=== PATIENT | female | born 1990 | race Caucasian/White ===

== ENCOUNTER 2019-11-16 12:10 | Observation (INO) | payer BC, SELFPAY ==
[2019-11-16 12:22] VITALS: BP 96/60; PULSE 91
[2019-11-16 12:23] VITALS: TEMP 36.9
[2019-11-16 12:30] VITALS: BP 98/42; PULSE 96
[2019-11-16 12:45] VITALS: BP 94/64; PULSE 91
--- NOTE | 2019-11-16 12:48 | OBADM ---
This patient, Gabriela Stock, admitted to the OB room [facility] for observation. Patient/family oriented to hospital policies and general routines including ID bracelet, bed and alarms, visiting hours, pain management, procedures, bathroom and other care routines, personal items, smoking policy, room service/diet, and visiting hours. Patient/Family are encouraged to report perceived risks to care and to ask questions if they do not understand what they are told or what they should do.
[2019-11-16 13:00] VITALS: BP 98/64; PULSE 89
[2019-11-16 13:20] LABS: Basophils Absolute Auto 0.1 K/mm3 (0.0-0.1); Basophils Percent Auto 0.4 % (0.2-1.2); Eosinophils Absolute Auto 0.1 K/mm3 (0-0.3); Eosinophils Percent Auto 0.6 % (0-4.4); Hemoglobin 10.2 g/dL (12.0-15.0); Immature Granulocyte Absolute 0.08 K/mm3 (0.00-0.031); Immature Granulocyte Percent A 0.5 % (0-0.5); Lymphocytes Absolute Auto 1.06 K/mm3 (0.9-3.2); Lymphocytes Percent Auto 6.8 % (18.3-44.2); Mean Corpuscular Hemoglobin 23.3 pg (26-34); Mean Corpuscular Volume 77.8 fl (80-100); Mean Platelet Volume 10.6 fl (7.4-10.4); Monocytes Absolute Auto 0.5 K/mm3 (0.1-0.6); Monocytes Percent Auto 3.4 % (2.6-8.5); Neutrophils Absolute Auto 13.7 K/mm3 (1.3-6.7); Neutrophils Percent Auto 88.3 % (45.5-73.1); Platelet Count Result 296 k/mm3 (150-375); Red Blood Count 4.37 M/mm3 (4.2-5.4); Red Cell Distribution Width 14.1 % (11.5-14.5); White Blood Count 15.5 K/mm3 (4.5-10.0)
[2019-11-16] MEDS: ONDANSETRON INJ 4 MG/2 ML VIAL IV PUSH (13:23)
[2019-11-16 13:24] LABS: Add Urine Microscopic? YES; Appearance Urine Cloudy (Clear); Bacteria Urine Trace /hpf; Bilirubin Urine Negative (Negative); Blood Urine Negative (Negative); Color Urine Yellow (Yellow); Glucose Urine UA Negative (Negative); Ketones Urine Negative (Negative); Leukocyte Esterase Ur 2+ LEU/UL (NEGATIVE); Mucus Urine Rare /lpf; Nitrate Urine Negative (Negative); Protein Urine Negative (Negative); RBC Urine 0-2 /hpf (0-2); Specific Grav Ur 1.016 (1.001-1.035); Squamous Epithelial Cell Urine Many /hpf (Few); Transitional Epi Cells Urine Rare /hpf (None Seen); Urobilinogen Urine Negative mg/dL (<2.0)
[2019-11-16] MEDS: LACTATED RINGERS 1,000 ML 999 ML IV CONT (13:24)
[2019-11-16 13:41] VITALS: BMI 23.1
[2019-11-16 13:43] LABS: Alanine Aminotransferase 10 U/L (4-35); Albumin Level 4.3 g/dL (3.5-5.1); Alkaline Phosphatase 138 U/L (38-126); Aspartate Amino Transferase 17 U/L (14-36); Bilirubin,Total 0.2 mg/dL (0.2-1.3); Blood Urea Nitrogen 8 mg/dL (7-17); Carbon Dioxide 20 mmol/L (22-30); Chloride 104 mmol/L (98-107); Estimated Glomerular Filt Rate > 60; Glucose 82 mg/dL (65-105); Potassium 3.8 mmol/L (3.4-5.0); Sodium 136 mmol/L (137-145); Uric Acid 2.7 mg/dL (2.5-7.5)
[2019-11-16 13:50] LABS: Amphetamine Screen Urine Negative (Negative); Barbiturate Screen Urine Negative (Negative); Benzodiazepines Screen Urine Negative (Negative); Cannabinoid Screen Urine Negative (Negative); Cocaine Screen Urine Negative (Negative); Methadone Screen Urine Negative (Negative); Opiate Screen Urine Negative (Negative); Phencyclidine Screen Urine Negative (Negative)
--- NOTE | 2019-11-16 14:32 | PC.NURSE ---
1417-Pt taken off of monitor to discharge home, no contractions noted.
--- NOTE | 2019-12-08 11:45 | PM.OBTRLD ---
OB - Triage/Final Diagnosis Evaluation Laboratory results: Laboratory Tests 11/16/19 11/16/19 11/16/19 12:59 12:59 12:59 WBC 15.5 H RBC 4.37 Hgb 10.2 L Hct 34.0 L MCV 77.8 L MCH 23.3 L MCHC 30.0 L RDW 14.1 Plt Count 296 MPV 10.6 H Immature Gran % (Auto) 0.5 Neut % (Auto) 88.3 H Lymph % (Auto) 6.8 L [place] % (Auto) 3.4 Eos % (Auto) 0.6 Baso % (Auto) 0.4 Lymph # (Auto) 1.06 [place] # (Auto) 0.5 Eos # (Auto) 0.1 Baso # (Auto) 0.1 Abs Immat Gran (auto) 0.08 H Absolute Neuts (auto) 13.7 H Absolute Nucleated RBC 0.0 Nucleated RBC % 0.0 Sodium 136 L Potassium 3.8 Chloride 104 Carbon Dioxide 20 L BUN 8 Creatinine 0.40 L Estim Creat Clear Calc Not Reportable Estimated GFR > 60 Glucose 82 Uric Acid 2.7 Calcium 9.0 Total Bilirubin 0.2 AST 17 ALT 10 Alkaline Phosphatase 138 H Total Protein 8.0 Albumin 4.3 Urine Color Urine Appearance Urine pH Ur Specific Hallie Urine Protein Urine Glucose (UA) Urine Ketones Ur Blood (Man) Urine Nitrate Urine Bilirubin Urine Urobilinogen Ur Leukocyte Esterase Urine RBC Urine WBC Ur Squamous Epith Cells Ur Transition Epith Cell Urine Bacteria Urine Mucus Urine Opiates Screen Negative Urine Methadone Screen Negative Ur Barbiturates Screen Negative Ur Phencyclidine Scrn Negative Ur Amphetamine Screen Negative U Benzodiazepines Scrn Negative Urine Cocaine Screen Negative U Cannabinoids Screen Negative 11/16/19 13:02 WBC RBC Hgb Hct MCV MCH MCHC RDW Plt Count MPV Immature Gran % (Auto) Neut % (Auto) Lymph % (Auto) [place] % (Auto) Eos % (Auto) Baso % (Auto) Lymph # (Auto) [place] # (Auto) Eos # (Auto) Baso # (Auto) Abs Immat Gran (auto) Absolute Neuts (auto) Absolute Nucleated RBC Nucleated RBC % Sodium Potassium Chloride Carbon Dioxide BUN Creatinine Estim Creat Clear Calc Estimated GFR Glucose Uric Acid Calcium Total Bilirubin AST ALT Alkaline Phosphatase Total Protein Albumin Urine Color Yellow Urine Appearance Cloudy H Urine pH 6.0 Ur Specific Hallie 1.016 Urine Protein Negative Urine Glucose (UA) Negative Urine Ketones Negative Ur Blood (Man) Negative Urine Nitrate Negative Urine Bilirubin Negative Urine Urobilinogen Negative Ur Leukocyte Esterase 2+ H Urine RBC 0-2 Urine WBC 4-6 H Ur Squamous Epith Cells Many H Ur Transition Epith Cell Rare Urine Bacteria Trace Urine Mucus Rare Urine Opiates Screen Urine Methadone Screen Ur Barbiturates Screen Ur Phencyclidine Scrn Ur Amphetamine Screen U Benzodiazepines Scrn Urine Cocaine Screen U Cannabinoids Screen Final Diagnosis (1) False labor: Code(s): O47.9 - False labor, unspecified Status: Acute
== END 2019-11-16 14:31 | disposition home or self-care (01) ==
PROVIDERS: Admitting Provider Obstetrics & Gynecology; Visit Provider Obstetrics & Gynecology
DX: O47.02 False labor before 37 completed weeks of gestation, second trimester (principal); Z3A.22 22 weeks gestation of pregnancy
CPT/HCPCS: 36415; 80053; 80307; 81001; 84550; 85025; 87086; 87088; 96374; A9270; G0378; G0379; J2405; J7120

== ENCOUNTER 2019-12-15 22:48 | Observation (INO) | payer BC, MEDICAID, SELFPAY ==
--- NOTE | ~2019-12-15 | XR_ITS ---
EXAMINATION: XR chest 2V DATE: 12/16/2019 00:36 INDICATION: Shortness of breath. TECHNIQUE: Frontal and lateral views of the chest were obtained. COMPARISON: Chest 2 views 07/21/2018 FINDINGS: The chest demonstrates clear lungs without pneumonia, pleural effusion, or pneumothorax. Th e heart size is normal. Surgical clips in the right upper quadrant are likely from cholecystectomy. IMPRESSION: 1. No acute cardiopulmonary disease. Reviewed, dictated and finalized at location A. RHANGER CONTRACTOR
--- NOTE | ~2019-12-15 | US_ITS ---
EXAMINATION: US OB follow up DATE: 12/17/2019 13:57 INDICATION: Second trimester growth and amniotic fluid assessment, influenza TECHNIQUE: Real-time ultrasound of the pelvis was performed. The interpreting radiologist was not pre sent for the study. COMPARISON: None. FINDINGS: There is a single living fetus in vertex presentation. The placenta is posterior. Hypoatten uating areas of the placenta likely reflect venous lakes. cardiac activity and movement a re noted. heart rate is 141 beats per minute (bpm). The amniotic fluid index is 11.5 cm which i s normal. The following biometric data were obtained: Biparietal diameter (BPD): 7.1 cm; head circumference (HC): 26.3 cm; abdominal circumference (AC): 24 .4 cm; femur length (FL): 5.2 cm. These measurements are concordant. Estimated weight is 1234 g +/- 185 g, which correlates with the 87th percentile when 03/16/2020 is used as estimated date of delivery. As single measurements, these parameters are each equal to the following estimated gestational ages w ith ranges of +/- 2 standard deviations: BPD: 28 weeks 5 days +/- 2 weeks 1 days. HC: 28 weeks 5 days +/- 2 weeks 0 days. AC: 28 weeks 5 days +/- 2 weeks 1 days. FL: 28 weeks 1 days +/- 2 weeks 1 days. estimated gestational age based solely on measurements from this exam is 28 weeks 4 days +/- 2 weeks 0 days. IMPRESSION: 1. Single living fetus in vertex presentation. 2. Normal amniotic fluid index. 3. Estimated weight is 1234 g +/- 185 g, which correlates with the 87th percentile when 03/16/20 20 is used as estimated date of delivery. Reviewed, dictated and finalized at location A. R BROKER IMPRESSION: 1. Single living fetus in vertex presentation. 2. Normal amniotic fluid index. 3. Estimated weight is 1234 g +/- 185 g, which correlates with the 87th p ercentile when 03/16/2020 is used as estimated date of delivery.
[2019-12-15 22:54] VITALS: BP 104/63; PULSE 108; RESP 22; TEMP 37.1; O2SAT 97
[2019-12-15 22:58] VITALS: BP 115/70; PULSE 96; RESP 20; O2SAT 100
--- NOTE | 2019-12-15 23:05 | ED.URI ---
HPI - URI/Sore Throat General Chief Complaint: Upper Respiratory Infection Stated Complaint: sob, back pain 27 wks preg. Time Seen by Provider: 12/15/19 22:56 Source: patient and RN notes reviewed Mode of arrival: ambulatory Limitations: no limitations History of Present Illness HPI Narrative: Pt is a 29 y/o female who is currently 28 weeks , who presents to the ED with c/o SOB. She notes that she has been following with [employer] WELDING MACHINE OPERATOR, Dr. Vergara, for her current . Pt states that this has been much more difficult than previous pregnancies. She reports intermittent SOB starting roughly 2 weeks ago and worsening within the past 2 days. Pt also notes having worsening low back pain starting several days ago. She reports recent rhinorrhea, but denies any fever, CP, dysuria, hematuria, or vaginal bleeding. Pt states that her family has recently had an upper respiratory illness at home. She notes that she recently quit smoking roughly 1.5 weeks ago. MD elicited complaint: other (SOB) Pertinent past history: asthma Onset (ago): week(s) (2) Consistency: progressively worsening Context: sick contacts Associated symptoms: rhinorrhea and other (low back pain) Related Data Home Medications Medication Instructions Recorded Confirmed No Home Medications 11/16/19 11/16/19 Allergies Allergy/AdvReac Type Severity Reaction Status Date / Time No Known Allergies Allergy Unverified 07/21/18 17:21 Review of Systems Review of Systems: Narrative: CONSTITUTIONAL: Denies fever, chills, or sweats. ENT: Denies sore throat or otalgia. Reports rhinorrhea. CARDIOVASCULAR: Denies chest pain, palpitations, or edema. RESPIRATORY: Denies cough. Reports dyspnea. GASTROINTESTINAL: Denies abdominal pain, nausea, vomiting, or diarrhea. GENITOURINARY: Denies dysuria, hematuria, or vaginal bleeding. MUSCULOSKELETAL: Reports low back pain. Denies joint pain or myalgia. All systems reviewed & are unremarkable except as noted in HPI and below PMFSH Past Medical History Medical History Anemia Asthma GERD (gastroesophageal reflux disease) Upper respiratory infection Surgical History Surgical History History of cholecystectomy Hx of tonsillectomy Social History Social History (Reviewed 02/26/20 @ 23:31 by Paul Chanel Smoking status: Smoker, status unknown Gender identity (if verbalized by the patient): Female Exam Narrative: Exam Narrative: GENERAL: Thin, frail appearing, in mild respiratory distress. HEAD: Normocephalic, atraumatic. EYES: PERRLA and EOMI. ENT: Nares clear, no rhinorrhea or epistaxis. Mucous membranes dry NECK: Supple. CHEST: Mild expiratory wheezing. Mild respiratory distress. Tachypneic. HEART: Regular rate and rhythm. No murmur heard. Normal peripheral pulses. ABDOMEN: Fundus palpable below the xiphoid process. Soft, nontender, nondistended, normal active bowel sounds. No flank tenderness. EXTREMITIES: Normal range of motion. No edema. SKIN: Warm, dry, no rash. NEURO: No focal deficits. Alert and oriented. EOMs intact without nystagmus. No facial droop/asymmetry noted bilaterally. Grimace intact. Intact sensation in face. Hearing intact bilaterally. Shoulder shrug intact. Strength 5/5 bilateral upper extremities. Strength 5/5 bilateral lower extremities. Ambulatory, does require some assistance with ambulation due to dizziness and lightheadedness. Course Course Emergency Course: Patient presenting for evaluation of cough, shortness of breath. At the time of initial assessment, ABCs are intact, patient is in moderate respiratory distress, tachypnea, use of accessory muscles to breathe. She is tachycardic. Patient is hypotensive. Given concern for sepsis, patient was given a 30 mL/kg fluid bolus. She was given antibiotics. Chest x-ray is concerning for possible right perihilar congestion, opacity that may be consist
--- NOTE | 2019-12-15 23:12 | ECG_ITS ---
Measurements Intervals Ola Rate: 98 P: 47 MA: 125 QRS: 66 QRSD: 89 T: 31 QT: 337 QTc: 432 Interpretive Statements SINUS RHYTHM BASELINE ARTIFACT- I, II, III, AVR, AVL, AVF NORMAL ECG Electronically Signed On 12-16-2019 9:00:22 PORT TRAFFIC MANAGER by Jah Mooney D.O.
--- NOTE | 2019-12-15 23:35 | PC.NURSE ---
heartones 138.
[2019-12-15] MEDS: ALBUTEROL SULFATE NEB 2.5 MG/0.5 ML INH 10 MG INHALATION (23:36)
[2019-12-15 23:43] VITALS: PULSE 103; RESP 20
[2019-12-15 23:44] LABS: Basophils Percent Auto 0.3 % (0.2-1.2); Eosinophils Absolute Auto 0.1 K/mm3 (0-0.3); Eosinophils Percent Auto 0.7 % (0-4.4); Hematocrit 26.4 % (37.0-47.0); Hemoglobin 7.8 g/dL (12.0-15.0); Immature Granulocyte Absolute 0.08 K/mm3 (0.00-0.031); Immature Granulocyte Percent A 0.8 % (0-0.5); Lymphocytes Absolute Auto 1.47 K/mm3 (0.9-3.2); Lymphocytes Percent Auto 14.9 % (18.3-44.2); Mean Corpuscular HGB Conc 29.5 g/dl (32-36); Mean Corpuscular Hemoglobin 21.8 pg (26-34); Mean Corpuscular Volume 73.7 fl (80-100); Mean Platelet Volume 11.1 fl (7.4-10.4); Monocytes Absolute Auto 0.6 K/mm3 (0.1-0.6); Neutrophils Absolute Auto 7.6 K/mm3 (1.3-6.7); Neutrophils Percent Auto 77.3 % (45.5-73.1); Nucleated Red Blood Cells Perc 0.4 % (0.0-0.2); Platelet Count Result 266 k/mm3 (150-375); Red Blood Count 3.58 M/mm3 (4.2-5.4); Red Cell Distribution Width 14.7 % (11.5-14.5); White Blood Count 9.9 K/mm3 (4.5-10.0)
[2019-12-15 23:50] LABS: Add Urine Microscopic? YES; Appearance Urine Clear (Clear); Bacteria Urine Trace /hpf; Bilirubin Urine Negative (Negative); Blood Urine Negative (Negative); Color Urine Straw (Yellow); Glucose Urine UA Negative (Negative); Ketones Urine Negative (Negative); Leukocyte Esterase Ur 2+ LEU/UL (Negative); Nitrate Urine Negative (Negative); Protein Urine Negative (Negative); RBC Urine 0-2 /hpf (0-2); Specific Grav Ur 1.008 (1.001-1.035); Squamous Epithelial Cell Urine Few /hpf (Few); Urobilinogen Urine Negative mg/dL (<2.0)
[2019-12-15] MEDS: methylPREDNISolone SOD SUCC 125 MG VIAL IV PUSH (23:50)
--- NOTE | 2019-12-15 23:52 | PC.NURSE ---
Patient stated she is 27 weeks and receiving care. PRABHJOT February 2020. Patient is a para 3 4. Patient denies any ABD pain or vaginal discharge.
[2019-12-15 23:56] LABS: Blood Urea Nitrogen 7 mg/dL (7-17); Calcium 8.8 mg/dL (8.4-10.2); Carbon Dioxide 21 mmol/L (22-30); Chloride 101 mmol/L (98-107); Estimated CRCL calculation 154 ml/min; Estimated Glomerular Filt Rate > 60; Glucose 90 mg/dL (65-105); Potassium 3.4 mmol/L (3.4-5.0); Sodium 136 mmol/L (137-145)
[2019-12-16] VITALS (24 sets, daily range): BP systolic 92–113; BP diastolic 51–70; PULSE 53–128; RESP 16–25; TEMP 36.4–37.7; O2SAT 95–100; BMI 25.0
[2019-12-16 00:08] LABS: NT Pro B Type Natriuretic Pept 47 PG/ML (5-100); Troponin I < 0.012 ng/mL (0.000-0.034)
[2019-12-16 00:15] LABS: Hypochromasia 1+ (NORMAL); Large Platelets Present; Platelet Estimate Adequate (Adequate)
[2019-12-16] MEDS: ALBUTEROL SULFATE NEB 2.5 MG/0.5 ML INH 5 MG INHALATION (00:55)
[2019-12-16 01:12] LABS: Alveolar/Arterial O2 Gradient 20.8 mmHg; Base Excess ABG -5.8 mEq/l (+/-2.0); Carboxyhemoglobin 0.3 % THb (0-2.0); Fractional Inspired Oxygen 21 %; HCO3 ABG 16.6 mEq/l (22.0-26.0); Methemoglobin ABG 0.2 %THb (0-1.5); Oxygen Content ABG 11.3 %vol (16.0-22.0); Oxygen Saturation ABG 98.1 % (95.0-100.0); Oxyhemoglobin 96.3 % THb (90.0-100.0); PO2 ABG 101.6 mmHg (80.0-100.0); PO2 FiO2 Ratio Arterial Blood 4.84 %; Reduced Hemoglobin 3.2 %THb (0-5.0); Total Hemoglobin 8.2 g/dL (12.0-18.0); pH ABG 7.481 (7.350-7.450)
[2019-12-16 01:14] LABS: PCO2 ABG 22.8 mmHg (35.0-45.0)
[2019-12-16 01:15] LABS: Device ROOM AIR; Site Drawn LEFT BRACHIAL
[2019-12-16] MEDS: SODIUM CHLORIDE 0.9% IV 1,000 ML 999 ML IV CONT (01:15)
[2019-12-16 01:59] LABS: Lactic Acid Reflex 1.4 mmol/L (0.7-2.1)
[2019-12-16] MEDS: SODIUM CHLORIDE 0.9% IV 1,000 ML 999 ML (02:11)
[2019-12-16] MEDS: OSELTAMIVIR PHOSPHATE 75 MG CAP PO (02:12)
[2019-12-16 02:24] LABS: Hematocrit 22.7 % (37.0-47.0)
[2019-12-16 02:27] LABS: Hemoglobin 6.9 g/dL (12.0-15.0)
--- NOTE | 2019-12-16 02:35 | PC.NURSE ---
Patient report faxed to the floor.
[2019-12-16] MEDS: SODIUM CHLORIDE 0.9% IV 250 ML 30 ML IV CONT (04:01)
[2019-12-16 08:21] LABS: Hematocrit 26.6 % (37.0-47.0)
[2019-12-16] MEDS: predniSONE 20 MG TABLET 60 MG PO (09:07)
[2019-12-16] MEDS: LEVALBUTEROL NEB 1.25 MG/3 ML 0.63 MG INHALATION ×3 (09:40→20:14)
--- NOTE | 2019-12-16 13:59 | PM.IMCN ---
Assessment and Plan Assessment and plan (1) Influenza A: Code(s): J10.1 - Influenza due to other identified influenza virus with other respiratory manifestations Status: Acute Assessment and Plan: Patient tested positive for influenza A in the ER but symptoms present for 2 weeks. Isolation discontinued. Will also discontinue Tamiflu as greater than 48 hours from onset of symptoms. Patient is on room air. No further wheezing. May discharge home from hospitalist standpoint. Will sign off but may re-consult if needed. Thank you for allowing us to participate in the care this patient. (2) Asthma: Qualifiers: Asthma severity: unspecified severity Asthma persistence: unspecified Asthma complication type: unspecified Qualified Code(s): J45.909 - Unspecified asthma, uncomplicated Code(s): J45.909 - Unspecified asthma, uncomplicated Status: Acute Assessment and Plan: Chest x-ray personally reviewed and no active disease seen. Radiology also officially reads chest x-ray as no active disease. Clinically does not have pneumonia with WBC normal and lungs now clear. Will discontinue prednisone as not felt necessary at this time. Would recommend having albuterol inhaler available for patient. Antibiotics started per recommendation of OB and may be continued per his discretion. (3) Anemia: Qualifiers: Anemia type: iron deficiency Iron deficiency anemia type: unspecified iron deficiency Qualified Code(s): D50.9 - Iron deficiency anemia, unspecified Code(s): D64.9 - Anemia, unspecified Status: Acute Assessment and Plan: Known anemia. Does not take iron. Hemoglobin did drop to 6.9 overnight with transfusion ordered per OB. Last 2 hemoglobin levels 8.0 with most recent 8.2. Would recommend following as an outpatient. (4) DVT prophylaxis: Code(s): Z29.9 - Encounter for prophylactic measures, unspecified Status: Acute Assessment and Plan: Per OB service. HPI Data of Consult Consult date: 12/16/19 Requesting Physician: Rashid Vergara MD Primary Care Provider: UNKNOWN,DOCTOR Consult Narrative Narrative: Date and Time of Service of Consult: 05/08/2020 at 1:30 p.m.. Reason for Consult: Assistance with management of respiratory issues. History of Present Illness: Gabriela Stock is a 29 year old female currently 27 weeks today with known asthma, anemia and depression who presented to the emergency room yesterday with increased shortness of breath. Patient reports she has had problems with shortness of breath, cough and low-grade fever to 100.5 off and on for the past 2 weeks. Patient states symptoms. Will worse yesterday. She has no current shortness of breath now. No further cough. No chest pain or chest pressure. Slight headache. In the emergency room, she was noted to be positive for influenza A. There was some concern on x-ray for possible pneumonia. Her OBGYN, Dr. Vergara, was contacted and recommended admission. Hospitalist service consulted to help with medical issues. Review of Systems Review of Systems: All systems reviewed & are unremarkable except as noted in HPI and below Constitutional: Constitutional: Denies chills and Denies fever(s) Eyes: Eyes: Reports no additional eye complaints ENT: Denies nasal congestion, Denies nasal discharge and Denies sore throat Cardiovascular: Cardiovascular: Denies chest pain and Denies palpitations Respiratory: Respiratory: Denies cough, Denies dyspnea and Denies wheezing Gastrointestinal: Gastrointestinal: Denies abdominal pain, Denies nausea and Denies vomiting Genitourinary: Genitourinary: Reports no additional female genitourinary complaints Musculoskeletal: Musculoskeletal: Reports no additional musculoskeletal complaints Integumentary/Breasts: Skin/Breast: Denies rash Neurologic: Reports headache(s) (Slight) Psychiatric: Psychiatric: Denies a
[2019-12-16 14:07] LABS: Hematocrit 27.1 % (37.0-47.0); Hemoglobin 8.2 g/dL (12.0-15.0)
--- NOTE | 2019-12-16 18:42 | PC.NURSE ---
Spoke with Dr Vergara about admission and if MD would be seeing the patient today and he referred me to the manager business operations physician. Then spoke with Dr Martinez and she was unaware of the admission and said she would speak with Dr Vergara and the patient would be seen by tomorrow.
[2019-12-16 20:16] LABS: Hematocrit 26.6 % (37.0-47.0)
[2019-12-17] MEDS: LEVALBUTEROL NEB 1.25 MG/3 ML 0.63 MG INHALATION ×3 (02:37→15:01)
[2019-12-17 02:38] VITALS: PULSE 82; RESP 18
[2019-12-17 02:43] VITALS: PULSE 80; RESP 18
[2019-12-17 06:00] VITALS: BP 90/47; PULSE 90; RESP 16; TEMP 36.7; O2SAT 98
[2019-12-17 08:08] VITALS: PULSE 79; RESP 18
--- NOTE | 2019-12-17 09:51 | PM.IMHP ---
H&P: HPI History of Present Illness Chief complaint: sepsis pneumonia influenza symptomatic anemia Narrative: Gabriela Stock is a 29 year old multiparous female at 27 weeks gestation who presented emergency department with upper respiratory symptoms. She tested positive for influenza. She is also found to be severely anemic. She was admitted for observation, supportive care, blood transfusion. Her respiratory symptoms have been present for some time. She was seen by hospitalist. She denies any contractions, loss of fluid, vaginal bleeding. Review of Systems Constitutional: Constitutional: Reports no additional constitutional complaints, Denies fatigue, Denies headache(s), Denies lethargy and Denies weakness Eyes: Eyes: Reports no additional eye complaints, Denies blurry vision and Denies photophobia ENT: Reports as per HPI, Denies headache(s) and Denies neck pain Cardiovascular: Cardiovascular: Denies chest pain, Denies diaphoresis, Denies leg edema, Denies palpitations and Denies dyspnea Respiratory: Respiratory: Reports as per HPI, Reports chest congestion, Reports cough, Reports dyspnea on exertion and Reports wheezing Gastrointestinal: Gastrointestinal: Denies abdominal pain, Denies melena, Denies bloating, Denies hematochezia, Denies nausea and Denies vomiting Genitourinary: Genitourinary: Reports no additional female genitourinary complaints Musculoskeletal: Musculoskeletal: Denies joint swelling, Denies neck pain, Denies numbness and Denies stiffness Neurologic: Denies Abnormal speech present, Denies confusion, Denies headache(s), Denies numbness and Denies weakness Psychiatric: Psychiatric: Denies anxiety, Denies confusion, Denies depression, Denies homicidal ideation and Denies suicidal ideation Endocrine: Endocrine: Denies fatigue and Denies palpitations Allergic/Immunologic: Allergic/Immunologic: Denies wheezing PMFSH Past Medical History Medical History Anemia Asthma GERD (gastroesophageal reflux disease) Upper respiratory infection Surgical History Surgical History History of cholecystectomy Hx of tonsillectomy Family History Family History Father Heart disease Mother Asthma COPD (chronic obstructive pulmonary disease) Sibling Hypothyroidism Social History Social History Social History: Patient is . She is a full code. She has 2 daughters and 1 son at. She does still smoke 5 cigarettes per day. No alcohol use. Smoking packs per day: 0.5 Smoking cigarettes per day: 10.0 Years smoked: 5 Smoking pack-years: 2.50 Smoking status: Current every day smoker Tobacco type: cigarettes Second hand tobacco smoke exposure: Yes Alcohol intake: never Substance use: never Living arrangements: with family Gender identity (if verbalized by the patient): Female Spiritual care concerns: No Agree to blood products: Yes Meds Home Medications and Allergies Home Medications Medication Instructions Recorded Confirmed Type hydrocodone-acetaminophen [[place]] 0.5 tablet PO Q4H PRN 12/16/19 12/16/19 History sertraline [Zoloft] 50 mg PO DAILY 12/16/19 12/16/19 History Allergies Allergy/AdvReac Type Severity Reaction Status Date / Time No Known Allergies Allergy Unverified 07/21/18 17:21 Vital Signs Vital Signs - 24 hr 12/16/19 12:00 12/16/19 14:00 12/16/19 15:14 Temperature 98.2 F Pulse Rate 98 96 87 Respiratory Rate 16 16 Blood Pressure 94/60 L Pulse Oximetry 99 12/16/19 15:21 12/16/19 16:00 12/16/19 20:15 Temperature Pulse Rate 102 H 105 H 84 Respiratory Rate 16 18 Blood Pressure Pulse Oximetry 12/16/19 20:22 12/16/19 22:00 12/17/19 02:38 Temperature 98.8 F Pulse Rate 88 53 L 82 Respiratory
--- NOTE | 2020-01-17 08:12 | P.DS_ITS ---
DS: Diagnosis Admitting Diagnosis Admitting Diagnosis: Influenza due to other identified influenza virus with othe r respiratory manifestations Discharge Diagnosis (1) Influenza A: Code(s): J10.1 - Influenza due to other identified influenza virus with other respiratory manifestations Status: Acute (2) Anemia: Qualifiers: Anemia type: iron deficiency Iron deficiency anemia type: unspecified iron deficiency Qualified Code(s): D50.9 - Iron deficiency anemia, unspecified Code(s): D64.9 - Anemia, unspecified Status: Acute (3) Second trimester : Code(s): Z34.92 - Encounter for supervision of normal , unspecified, second trimester Status: Acute DS: Summary Hospital Course Reason for hospitalization: This patient is a 29-year-old multiparous female at approximately 28 weeks gestation who presented with upper respiratory tract infection. She was also found to have severe anemia. She was observed for influenza and given supportive care. She was transfused. Her hospital course was unremarkable headache. She was discharged home after 24-48 hours. Status at Discharge Functional status at discharge: independent ambulation Time Spent with Patient Time attestation: Total time spent providing and/or coordinating discharge services: Time spent: Less than 30 minutes Discharge Plan Discharge Consulting providers: Jay Andersen V. ; Jah Mooney ; Ivan Márquez ; Charlette Stewart Discharging Clinician: Rashid Vergara Patient Disposition: Home, Self-Care Activity: pelvic rest Diet: regular Patient Instructions: Antibiotic Form, How to Stop Smoking (GEN), Cigarette Smoking and Your Health (GEN), Smoke Inhalation (GEN) Stand Alone Forms: General Discharge Information Follow-up/Referrals: Rashid Vergara MD [Physician] - 1 Week UNKNOWN,DOCTOR [Primary Care Provider] - 1 Week Discharge Medications: Continued sertraline [Zoloft] 50 mg Tablet 50 mg PO DAILY RF: 0 No Action ondansetron 4 mg Tablet,Disintegrating 4 mg PO Q6H PRN (Reason: Nausea And Vomiting) Qty: 30 RF: 0 ferrous sulfate [Iron (ferrous sulfate)] 325 mg (65 mg iron) Tablet 325 mg PO BID Qty: 30 RF: 0 Date of admission: 12/16/19 01:53 Primary Care Provider: UNKNOWN,DOCTOR Admitting Provider: Rashid Vergara Discharge Date/Time: 12/17/19 15:22 Attending physician on admission: Rashid Vergara Condition: Stable
== END 2019-12-17 15:22 | disposition home or self-care (01) ==
LOC: ANHED 12-16 01:58 → ANH2MED 12-16 02:17
PROVIDERS: Admitting Provider Obstetrics & Gynecology; Emergency Provider Emergency Medicine; Visit Provider Obstetrics & Gynecology
DX: O99.512 Diseases of the respiratory system complicating pregnancy, second trimester (principal); J10.1 Influenza due to other identified influenza virus with other respiratory manifestations; J45.909 Unspecified asthma, uncomplicated; R06.02 Shortness of breath; O99.012 Anemia complicating pregnancy, second trimester; D50.9 Iron deficiency anemia, unspecified; O99.342 Other mental disorders complicating pregnancy, second trimester; F32.9 Major depressive disorder, single episode, unspecified; O99.332 Smoking (tobacco) complicating pregnancy, second trimester; F17.210 Nicotine dependence, cigarettes, uncomplicated; Z3A.27 27 weeks gestation of pregnancy; Z23 Encounter for immunization
CPT/HCPCS: 36415; 36430; 36600; 71046; 76816; 80048; 81001; 82375; 82805; 83050; 83605; 83880; 84484; 85014; 85018; 85025; 86850; 86900; 86901; 86920; 87040; 87804; 90471; 90686; 93005; 94640; 96365; 96366; 96367; 96375; 99285; A9270; G0008; G0378; J0456; J0696; J2930; J7030; J7050; J7512; P9016

== ENCOUNTER 2019-12-21 01:41 | Emergency (ER) | payer OTHER, MEDICAID, SELFPAY ==
--- NOTE | ~2019-12-21 | XR_ITS ---
EXAMINATION: XR chest 1V portable DATE: 12/21/2019 02:09 INDICATION: Cough TECHNIQUE: frontal view of the chest was obtained. COMPARISON: Chest radiograph dated 12/16/2019 FINDINGS: The lungs remain clear with no focal airspace opacities, pulmonary edema, pleural effusion or pneumot horax. The cardiomediastinal silhouette is normal. Visualized bones and soft tissues are unremarkable . Cholecystectomy clips in the right upper quadrant. IMPRESSION: 1. No acute cardiopulmonary disease. Reviewed, dictated and finalized at location A. TAMP OPERATOR
[2019-12-21 01:50] VITALS: BP 107/75; PULSE 89; RESP 16; TEMP 36.9; O2SAT 100
--- NOTE | 2019-12-21 01:51 | ED.URI ---
HPI - URI/Sore Throat General Chief Complaint: Upper Respiratory Infection Stated Complaint: sob Time Seen by Provider: 12/21/19 01:49 Source: patient, family and RN notes reviewed Mode of arrival: other Limitations: no limitations History of Present Illness HPI Narrative: Pt is a 29 y/o female who presents to the ED with c/o SOB that began yesterday (12/20/19) afternoon. Pt is 28 weeks gestation. Pt was here at [place] on 12/15/19) for the same sx. Pt was dx with Influenza A. Pt has a hx of anemia with and she received a blood transfusion during her last ED visit. Pt's spouse states that they are unsure if she was dx with pneumonia. Pt also reports a worsening cough, but denies a fever and CP. MD elicited complaint: other (dyspnea) Pertinent past history: asthma Onset (ago): day(s) (1) Consistency: constant Able to tolerate fluids by mouth: Yes Context: recent hospitalization Associated symptoms: cough (worsening) Related Data Home Medications Medication Instructions Recorded Confirmed hydrocodone-acetaminophen [[place]] 0.5 tablet PO Q4H PRN 12/16/19 12/16/19 sertraline [Zoloft] 50 mg PO DAILY 12/16/19 12/16/19 Allergies Allergy/AdvReac Type Severity Reaction Status Date / Time No Known Allergies Allergy Unverified 07/21/18 17:21 Review of Systems Review of Systems: All systems reviewed & are unremarkable except as noted in HPI and below Constitutional: Constitutional: Denies fever(s) Cardiovascular: Cardiovascular: Denies chest pain Respiratory: Respiratory: Reports cough (worsening) and Reports dyspnea PMFSH Past Medical History Medical History (Updated 12/21/19 @ 02:40 by Alden Yeboah MD) Anemia Asthma exercise induced GERD (gastroesophageal reflux disease) Upper respiratory infection Surgical History Surgical History History of cholecystectomy Hx of tonsillectomy Social History Social History Social History: Patient is . She is a full code. She has 2 daughters and 1 son at. She does still smoke 5 cigarettes per day. No alcohol use. Smoking packs per day: 0.5 Smoking cigarettes per day: 10.0 Years smoked: 5 Smoking pack-years: 2.50 Smoking status: Current every day smoker Tobacco type: cigarettes Second hand tobacco smoke exposure: Yes Alcohol intake: never Substance use: never Gender identity (if verbalized by the patient): Female Spiritual care concerns: No Agree to blood products: Yes Exam Narrative: Exam Narrative: GENERAL: Well-appearing, well-nourished, and in no acute distress. HEAD: Normocephalic, atraumatic. EYES: PERRLA and EOMI. ENT: Nares clear, . Mucous membranes moist. NECK: Supple. CHEST: Mild wheeze No respiratory distress. HEART: Regular rate and rhythm. No murmur heard. Normal peripheral pulses. ABDOMEN: Soft, non tender, non distended, normal active bowel sounds. EXTREMITIES: Normal range of motion. No edema. SKIN: Warm, dry, no rash. NEURO: No focal deficits. Alert and oriented x3. PSYCH: Normal mood and affect. Course Course Emergency Course: Patient felt better after nebulizer treatment. I discussed lab, chest x-ray findings with patient and the family. I advised her to continue her home inhalers. Vital Signs Vital signs: Vital Signs Temperature 36.9 C 12/21/19 01:50 Pulse Rate 89 12/21/19 01:50 Respiratory Rate 16 12/21/19 01:50 Blood Pressure 107/75 12/21/19 01:50 Pulse Oximetry 100 12/21/19 01:50 Temperature 36.9 C 12/21/19 01:50 Pulse Rate 85 12/21/19 02:14 Respiratory Rate 18 12/21/19 02:14 Blood Pressure 107/75 12/21/19 01:50 Pulse Oximetry 100 12/21/19 01:50 MDM - URI/Sore Throat Lab Data Result diagrams: 12/21/19 02:07 12/21/19 02:07 Labs: Lab Results 12/21/19 12/21/19 Range/Units 02:07 02:07 WBC 11.1
[2019-12-21] MEDS: ALBUTEROL SULFATE NEB 2.5 MG/0.5 ML INH 5 MG INHALATION (02:03)
[2019-12-21] MEDS: IPRATROPIUM BR 0.02% INH SOLN 0.5 MG/2.5 ML VIAL INHALATION (02:04)
[2019-12-21 02:08] VITALS: PULSE 89; RESP 18
[2019-12-21 02:14] VITALS: PULSE 85; RESP 18
[2019-12-21 02:14] LABS: Basophils Percent Auto 0.4 % (0.2-1.2); Eosinophils Absolute Auto 0.2 K/mm3 (0-0.3); Eosinophils Percent Auto 2.1 % (0-4.4); Hematocrit 30.1 % (37.0-47.0); Hemoglobin 9.1 g/dL (12.0-15.0); Immature Granulocyte Absolute 0.09 K/mm3 (0.00-0.031); Immature Granulocyte Percent A 0.8 % (0-0.5); Lymphocytes Percent Auto 24.3 % (18.3-44.2); Mean Corpuscular HGB Conc 30.2 g/dl (32-36); Mean Corpuscular Hemoglobin 22.4 pg (26-34); Mean Corpuscular Volume 74.1 fl (80-100); Mean Platelet Volume 10.5 fl (7.4-10.4); Monocytes Absolute Auto 0.7 K/mm3 (0.1-0.6); Monocytes Percent Auto 5.8 % (2.6-8.5); Neutrophils Absolute Auto 7.4 K/mm3 (1.3-6.7); Neutrophils Percent Auto 66.6 % (45.5-73.1); Platelet Count Result 307 k/mm3 (150-375); Red Blood Count 4.06 M/mm3 (4.2-5.4); Red Cell Distribution Width 15.4 % (11.5-14.5); White Blood Count 11.1 K/mm3 (4.5-10.0)
[2019-12-21 02:23] LABS: Blood Urea Nitrogen 5 mg/dL (7-17); Calcium 8.7 mg/dL (8.4-10.2); Carbon Dioxide 20 mmol/L (22-30); Chloride 101 mmol/L (98-107); Estimated Glomerular Filt Rate > 60; Glucose 89 mg/dL (65-105); Potassium 3.6 mmol/L (3.4-5.0); Sodium 135 mmol/L (137-145)
[2019-12-21 03:00] VITALS: BP 110/82; PULSE 92; RESP 18; O2SAT 99
== END 2019-12-21 03:02 | disposition home or self-care (01) ==
PROVIDERS: Emergency Provider Family Medicine
DX: O99.512 Diseases of the respiratory system complicating pregnancy, second trimester (principal); J10.1 Influenza due to other identified influenza virus with other respiratory manifestations; J45.909 Unspecified asthma, uncomplicated; O99.012 Anemia complicating pregnancy, second trimester; D64.9 Anemia, unspecified; F17.210 Nicotine dependence, cigarettes, uncomplicated; O99.332 Smoking (tobacco) complicating pregnancy, second trimester; Z3A.28 28 weeks gestation of pregnancy
CPT/HCPCS: 36415; 71045; 80048; 85025; 87804; 94640; 99283

== ENCOUNTER 2019-12-29 13:34 | Observation (INO) | payer OTHER, MEDICAID, SELFPAY ==
[2019-12-29] VITALS (9 sets, daily range): BP systolic 93–99; BP diastolic 59–71; PULSE 77–90; RESP 16–18; TEMP 36.8–36.9; O2SAT 98–100; BMI 22.5
--- NOTE | 2019-12-29 13:49 | ED.WEAKNESS ---
HPI - Weakness General Chief complaint: Weakness Stated complaint: altered - 20 wks preg Time Seen by Provider: 12/29/19 13:48 Source: patient and RN notes reviewed Mode of arrival: other Limitations: no limitations History of Present Illness HPI Narrative: Pt is a 29 y/o female who presents to the ED with c/o generalized weakness that began earlier this afternoon. Pt is 28 weeks gestation. Pt's LMP was 06/10/19. Pt states that she feels out of it. Pt denies any recent drug or EtOH usage. Pt notes that she recently received blood products a few weeks ago d/t low blood levels. Pt also reports confusion, but denies vaginal bleeding, fever, and a cough. MD Complaint: generalized weakness Onset (ago): hour(s) Duration: constant Location: generalized Associated symptoms: confusion Related Data Home Medications Medication Instructions Recorded Confirmed sertraline [Zoloft] 50 mg PO DAILY 12/16/19 12/29/19 ferrous sulfate [Iron (ferrous 325 mg PO BID 12/29/19 12/29/19 sulfate)] Allergies Allergy/AdvReac Type Severity Reaction Status Date / Time No Known Allergies Allergy Verified 12/29/19 13:50 Review of Systems Review of Systems: All systems reviewed & are unremarkable except as noted in HPI and below Constitutional: Constitutional: Denies fever(s) Respiratory: Respiratory: Denies cough Genitourinary: Genitourinary: Denies abnormal vaginal bleeding Neurologic: Reports confusion and Reports weakness (generalized) [facility] Past Medical History Medical History (Updated 12/29/19 @ 15:44 by Naomi Shepherd MD) Anemia Asthma exercise induced GERD (gastroesophageal reflux disease) Seasonal allergies Upper respiratory infection Surgical History Surgical History History of cholecystectomy Hx of tonsillectomy Social History Social History Social History: Patient is . She is a full code. She has 2 daughters and 1 son at. She does still smoke 5 cigarettes per day. No alcohol use. Smoking packs per day: 0.5 Smoking cigarettes per day: 10.0 Years smoked: 5 Smoking pack-years: 2.50 Smoking status: Current every day smoker Tobacco type: cigarettes Second hand tobacco smoke exposure: Yes Alcohol intake: never Substance use: never Gender identity (if verbalized by the patient): Female Spiritual care concerns: No Agree to blood products: Yes Exam Const: General: no acute distress and well developed Orientation/consciousness: oriented to person, oriented to place, oriented to time and patient oriented x3 HENMT: Head: normocephalic Ears: external ears normal General nose exam: Normal external nose present Eyes: General: appearance normal, both eyes and all related structures Conjunctivae: conjunctivae normal Neck: Neck: normal visual inspection and full ROM Chest: Chest palpation & inspection: normal inspection of the chest and no tenderness Resp: Effort & Inspection: normal respiratory effort Auscultation: clear to auscultation bilaterally Cardio: Rate: regular rate Rhythm: regular rhythm GI: GI Palp: No abdominal tenderness and Yes Soft to palpation : General: Yes other (gravid uterus) Skin: General skin exam: normal color and turgor normal Neuro: General: oriented to person, oriented to place, oriented to time and patient oriented x3 Cranial nerves: Yes CN's II-XII intact bilaterally Cognition (Neuro): normal cognition Speech: normal speech Motor exam (neuro): 5/5 motor strength present throughout Sensory Exam: normal sensation Coordination: [id number] test normal and [id number] test normal Extrem: General: normal to inspection, full ROM and no pedal edema Psych: Appearance: grossly normal Mental Status: mental status grossly normal Affect: normal affect Course Consultations Consultation #1: Discussed with Dr. Vergara (Ob), who nahum
[2019-12-29 14:11] LABS: Basophils Absolute Auto 0.1 K/mm3 (0.0-0.1); Basophils Percent Auto 0.6 % (0.2-1.2); Eosinophils Absolute Auto 0.2 K/mm3 (0-0.3); Eosinophils Percent Auto 1.4 % (0-4.4); Hematocrit 31.6 % (37.0-47.0); Hemoglobin 9.3 g/dL (12.0-15.0); Immature Granulocyte Absolute 0.06 K/mm3 (0.00-0.031); Immature Granulocyte Percent A 0.6 % (0-0.5); Lymphocytes Absolute Auto 1.72 K/mm3 (0.9-3.2); Lymphocytes Percent Auto 16.4 % (18.3-44.2); Mean Corpuscular HGB Conc 29.4 g/dl (32-36); Mean Corpuscular Hemoglobin 22.1 pg (26-34); Mean Corpuscular Volume 75.1 fl (80-100); Mean Platelet Volume 11.4 fl (7.4-10.4); Monocytes Absolute Auto 0.6 K/mm3 (0.1-0.6); Monocytes Percent Auto 5.4 % (2.6-8.5); Neutrophils Absolute Auto 7.9 K/mm3 (1.3-6.7); Neutrophils Percent Auto 75.6 % (45.5-73.1); Platelet Count Result 377 k/mm3 (150-375); Red Blood Count 4.21 M/mm3 (4.2-5.4); Red Cell Distribution Width 16.5 % (11.5-14.5); White Blood Count 10.5 K/mm3 (4.5-10.0)
[2019-12-29 14:23] LABS: Alanine Aminotransferase 11 U/L (4-35); Albumin Level 3.8 g/dL (3.5-5.1); Alkaline Phosphatase 205 U/L (38-126); Aspartate Amino Transferase 25 U/L (14-36); Bilirubin,Total 0.7 mg/dL (0.2-1.3); Blood Urea Nitrogen 7 mg/dL (7-17); Calcium 8.8 mg/dL (8.4-10.2); Carbon Dioxide 23 mmol/L (22-30); Chloride 103 mmol/L (98-107); Estimated CRCL calculation 121 ml/min; Estimated Glomerular Filt Rate > 60; Glucose 82 mg/dL (65-105); Potassium 3.8 mmol/L (3.4-5.0); Sodium 134 mmol/L (137-145)
[2019-12-29 14:26] LABS: Anisocytosis 1+ (NORMAL); Hypochromasia 1+ (NORMAL); Ovalocytes 1+ (NORMAL); Platelet Estimate Adequate (Adequate); Poikilocytosis 1+ (NORMAL)
[2019-12-29] MEDS: SODIUM CHLORIDE 0.9% IV 1,000 ML 999 ML IV CONT (14:45)
[2019-12-29 15:13] LABS: Add Urine Microscopic? YES; Appearance Urine Cloudy (Clear); Bacteria Urine Trace /hpf; Bilirubin Urine Negative (Negative); Blood Urine Negative (Negative); Color Urine Yellow (Yellow); Glucose Urine UA Negative (Negative); Ketones Urine Negative (Negative); Leukocyte Esterase Ur 3+ LEU/UL (Negative); Mucus Urine Moderate /lpf; Nitrate Urine Negative (Negative); Protein Urine 1+ mg/dL (Negative); Specific Grav Ur 1.017 (1.001-1.035); Squamous Epithelial Cell Urine Many /hpf (Few); WBC Urine 0-3 /hpf
--- NOTE | 2019-12-29 16:01 | PC.NURSE ---
vrbo from dr rodriguez to take to pt to ob for obs asked to leave iv in place by dr rodriguez pt to dc from ed then be escorted to ob
[2019-12-29 16:27] LABS: Amphetamine Screen Urine Negative (Negative); Barbiturate Screen Urine Negative (Negative); Benzodiazepines Screen Urine Negative (Negative); Cannabinoid Screen Urine Negative (Negative); Cocaine Screen Urine Negative (Negative); Methadone Screen Urine Negative (Negative); Opiate Screen Urine Negative (Negative); Phencyclidine Screen Urine Negative (Negative)
--- NOTE | 2019-12-29 16:49 | OBADM ---
This patient, Gabriela Stock, admitted to the OB room 115 per wheelchair from ED for observation for c/o weakness. Patient/family oriented to hospital policies and general routines including ID bracelet, bed and alarms, visiting hours, pain management, procedures, bathroom and other care routines, personal items, smoking policy, room service/diet, and visiting hours. Patient/Family are encouraged to report perceived risks to care and to ask questions if they do not understand what they are told or what they should do.
[2019-12-29] MEDS: ONDANSETRON HCL ODT 4 MG TABLET PO (17:20)
--- NOTE | 2020-01-05 07:45 | PM.OBTRLD ---
OB - Triage/Final Diagnosis Visit Information Date of evaluation: 12/29/19 Reason for evaluation: other (weakness) Evaluation Laboratory results: Laboratory Tests 12/29/19 12/29/19 12/29/19 14:05 14:05 14:56 WBC 10.5 H RBC 4.21 Hgb 9.3 L Hct 31.6 L MCV 75.1 L MCH 22.1 L MCHC 29.4 L RDW 16.5 H Plt Count 377 H MPV 11.4 H Immature Gran % (Auto) 0.6 H Neut % (Auto) 75.6 H Lymph % (Auto) 16.4 L [place] % (Auto) 5.4 Eos % (Auto) 1.4 Baso % (Auto) 0.6 Lymph # (Auto) 1.72 [place] # (Auto) 0.6 Eos # (Auto) 0.2 Baso # (Auto) 0.1 Abs Immat Gran (auto) 0.06 H Absolute Neuts (auto) 7.9 H Absolute Nucleated RBC 0.0 Nucleated RBC % 0.0 Platelet Estimate Adequate Hypochromasia 1+ Poikilocytosis 1+ Anisocytosis 1+ Ovalocytes 1+ Sodium 134 L Potassium 3.8 Chloride 103 Carbon Dioxide 23 BUN 7 Creatinine 0.50 L Estim Creat Clear Calc 121 Estimated GFR > 60 Glucose 82 Calcium 8.8 Total Bilirubin 0.7 AST 25 ALT 11 Alkaline Phosphatase 205 H Total Protein 8.0 Albumin 3.8 Urine Color Yellow Urine Appearance Cloudy H Urine pH 6.0 Ur Specific [place] 1.017 Urine Protein 1+ H Urine Glucose (UA) Negative Urine Ketones Negative Ur Blood (Man) Negative Urine Nitrate Negative Urine Bilirubin Negative Urine Urobilinogen 2.0 H Leukocyte Esterase Rfl 3+ H Urine RBC 6-10 H Urine WBC 0-3 Ur Squamous Epith Cells Many H Urine Bacteria Trace Urine Mucus Moderate H Urine Opiates Screen Urine Methadone Screen Ur Barbiturates Screen Ur Phencyclidine Scrn Ur Amphetamine Screen U Benzodiazepines Scrn Urine Cocaine Screen U Cannabinoids Screen 12/29/19 16:02 WBC RBC Hgb Hct MCV MCH MCHC RDW Plt Count MPV Immature Gran % (Auto) Neut % (Auto) Lymph % (Auto) [place] % (Auto) Eos % (Auto) Baso % (Auto) Lymph # (Auto) [place] # (Auto) Eos # (Auto) Baso # (Auto) Abs Immat Gran (auto) Absolute Neuts (auto) Absolute Nucleated RBC Nucleated RBC % Platelet Estimate Hypochromasia Poikilocytosis Anisocytosis Ovalocytes Sodium Potassium Chloride Carbon Dioxide BUN Creatinine Estim Creat Clear Calc Estimated GFR Glucose Calcium Total Bilirubin AST ALT Alkaline Phosphatase Total Protein Albumin Urine Color Urine Appearance Urine pH Ur Specific [place] Urine Protein Urine Glucose (UA) Urine Ketones Ur Blood (Man) Urine Nitrate Urine Bilirubin Urine Urobilinogen Leukocyte Esterase Rfl Urine RBC Urine WBC Ur Squamous Epith Cells Urine Bacteria Urine Mucus Urine Opiates Screen Negative Urine Methadone Screen Negative Ur Barbiturates Screen Negative Ur Phencyclidine Scrn Negative Ur Amphetamine Screen Negative U Benzodiazepines Scrn Negative Urine Cocaine Screen Negative U Cannabinoids Screen Negative
== END 2019-12-29 19:10 | disposition home or self-care (01) ==
LOC: ANHED 16:01 → ANHOBPP 17:20 → ANHED 18:46 → ANHOBPP 19:07
PROVIDERS: Admitting Provider Obstetrics & Gynecology; Emergency Provider Emergency Medicine; Visit Provider Obstetrics & Gynecology
DX: O26.893 Other specified pregnancy related conditions, third trimester (principal); R53.1 Weakness; O99.333 Smoking (tobacco) complicating pregnancy, third trimester; F17.210 Nicotine dependence, cigarettes, uncomplicated; O99.013 Anemia complicating pregnancy, third trimester; D64.9 Anemia, unspecified; Z3A.28 28 weeks gestation of pregnancy
CPT/HCPCS: 36415; 80053; 80307; 81001; 85025; 99285; A9270; G0378; G0379; J7030

== ENCOUNTER 2020-01-07 22:34 | Observation (INO) | payer OTHER, MEDICAID, SELFPAY ==
[2020-01-07 22:48] VITALS: BP 100/69; PULSE 89
[2020-01-07 23:00] VITALS: BP 107/61; PULSE 102
[2020-01-07 23:10] LABS: Add Urine Microscopic? NO; Appearance Urine Clear (Clear); Bilirubin Urine Negative (Negative); Blood Urine Negative (Negative); Color Urine Yellow (Yellow); Glucose Urine UA Negative (Negative); Ketones Urine Negative (Negative); Leukocyte Esterase Ur Negative LEU/UL (NEGATIVE); Nitrate Urine Negative (Negative); Protein Urine Negative (Negative); Specific Grav Ur 1.013 (1.001-1.035); Urobilinogen Urine Negative mg/dL (<2.0)
--- NOTE | 2020-01-07 23:10 | OBADM ---
This patient, Gabriela Stock, admitted to the OB room OB Post 117 for observation. Patient/family oriented to hospital policies and general routines including ID bracelet, bed and alarms, visiting hours, pain management, procedures, bathroom and other care routines, personal items, smoking policy, room service/diet, and visiting hours. Patient/Family are encouraged to report perceived risks to care and to ask questions if they do not understand what they are told or what they should do.
[2020-01-07 23:12] VITALS: BMI 22.6
[2020-01-07] MEDS: ONDANSETRON HCL ODT 4 MG TABLET PO (23:27)
[2020-01-07] MEDS: TERBUTALINE SULFATE 1 MG/ML VIAL 0.25 MG SUB-Q (23:27)
--- NOTE | 2020-01-08 00:28 | PC.NURSE ---
SVE cloed. pt states contractions are better and no more nausea. discharge instruction given
--- NOTE | 2020-02-05 20:33 | PM.OBTRLD ---
OB - Triage/Final Diagnosis Visit Information Date of evaluation: 01/08/20 Evaluation Laboratory results: Laboratory Tests 01/07/20 22:50 Urine Color Yellow Urine Appearance Clear Urine pH 6.0 Ur Specific [place] 1.013 Urine Protein Negative Urine Glucose (UA) Negative Urine Ketones Negative Ur Blood (Man) Negative Urine Nitrate Negative Urine Bilirubin Negative Urine Urobilinogen Negative Ur Leukocyte Esterase Negative Final Diagnosis (1) contractions: Code(s): O47.9 - False labor, unspecified Status: Acute
== END 2020-01-08 00:40 | disposition home or self-care (01) ==
PROVIDERS: Admitting Provider Obstetrics & Gynecology; Visit Provider Obstetrics & Gynecology
DX: O26.899 Other specified pregnancy related conditions, unspecified trimester (principal); R10.9 Unspecified abdominal pain; Z3A.00 Weeks of gestation of pregnancy not specified
CPT/HCPCS: 81003; 87086; 87088; 96372; A9270; G0378; G0379; J3105

== ENCOUNTER 2020-01-10 02:55 | Observation (INO) | payer MEDICAID, SELFPAY ==
[2020-01-10 03:04] VITALS: BP 109/68; PULSE 77
[2020-01-10 03:26] VITALS: TEMP 37
[2020-01-10] MEDS: ONDANSETRON HCL ODT 4 MG TABLET PO (04:32)
--- NOTE | 2020-01-10 04:37 | PC.NURSE ---
sve performed. cervix closed.
--- NOTE | 2020-01-10 05:00 | PC.NURSE ---
pt given several cups of water upon admission. pt encouraged several times to drink oral fluids. pt educated on importance of oral fluids. pt had minimal oral intake, less than 8 oz of water. pt given turkey sandwhich tray. pt ate about half of turkey sandwhich. pt encouraged to increase oral fluid intake.
--- NOTE | 2020-02-05 21:05 | PM.OBTRLD ---
OB - Triage/Final Diagnosis Visit Information Date of evaluation: 01/12/20 Final Diagnosis (1) False labor: Code(s): O47.9 - False labor, unspecified Status: Acute
== END 2020-01-10 05:00 | disposition home or self-care (01) ==
PROVIDERS: Admitting Provider Obstetrics & Gynecology; Visit Provider Obstetrics & Gynecology
DX: O60.00 Preterm labor without delivery, unspecified trimester (principal); Z3A.00 Weeks of gestation of pregnancy not specified
CPT/HCPCS: A9270; G0378; G0379

== ENCOUNTER 2020-01-16 15:46 | Observation (INO) | payer OTHER, MEDICAID, SELFPAY ==
[2020-01-16 15:59] VITALS: BP 98/66; PULSE 83
[2020-01-16 16:00] VITALS: BP 98/58; PULSE 89; TEMP 37.3
[2020-01-16 16:15] VITALS: BP 97/66; PULSE 90; BMI 22.3
[2020-01-16 16:30] VITALS: BP 97/63; PULSE 88
[2020-01-16 16:45] VITALS: BP 96/62; PULSE 80
[2020-01-16] MEDS: TERBUTALINE SULFATE 1 MG/ML VIAL 0.25 MG SUB-Q (16:57)
[2020-01-16 17:06] LABS: Basophils Absolute Auto 0.1 K/mm3 (0.0-0.1); Basophils Percent Auto 0.4 % (0.2-1.2); Eosinophils Absolute Auto 0.1 K/mm3 (0-0.3); Eosinophils Percent Auto 0.9 % (0-4.4); Hemoglobin 8.4 g/dL (12.0-15.0); Immature Granulocyte Absolute 0.09 K/mm3 (0.00-0.031); Immature Granulocyte Percent A 0.7 % (0-0.5); Lymphocytes Absolute Auto 2.19 K/mm3 (0.9-3.2); Lymphocytes Percent Auto 16.6 % (18.3-44.2); Mean Corpuscular Hemoglobin 21.8 pg (26-34); Mean Corpuscular Volume 75.3 fl (80-100); Monocytes Absolute Auto 0.6 K/mm3 (0.1-0.6); Monocytes Percent Auto 4.3 % (2.6-8.5); Neutrophils Absolute Auto 10.2 K/mm3 (1.3-6.7); Neutrophils Percent Auto 77.1 % (45.5-73.1); Platelet Count Result 343 k/mm3 (150-375); Red Blood Count 3.85 M/mm3 (4.2-5.4); White Blood Count 13.2 K/mm3 (4.5-10.0)
[2020-01-16 17:10] LABS: Add Urine Microscopic? YES; Appearance Urine Clear (Clear); Bacteria Urine Trace /hpf; Bilirubin Urine Negative (Negative); Blood Urine Negative (Negative); Color Urine Yellow (Yellow); Glucose Urine UA Negative (Negative); Ketones Urine 1+ mg/dL (Negative); Leukocyte Esterase Ur 1+ LEU/UL (NEGATIVE); Mucus Urine Rare /lpf; Nitrate Urine Negative (Negative); Protein Urine Negative (Negative); RBC Urine 0-2 /hpf (0-2); Specific Grav Ur 1.011 (1.001-1.035); Squamous Epithelial Cell Urine Many /hpf (Few); Urobilinogen Urine Negative mg/dL (<2.0); WBC Urine 0-3 /hpf (0-3)
[2020-01-16 17:16] LABS: Anisocytosis 1+ (NORMAL); Hypochromasia 1+ (NORMAL); Platelet Estimate Adequate (Adequate)
[2020-01-16 17:17] LABS: Blood Urea Nitrogen 5 mg/dL (7-17); Calcium 8.3 mg/dL (8.4-10.2); Carbon Dioxide 19 mmol/L (22-30); Chloride 105 mmol/L (98-107); Estimated Glomerular Filt Rate > 60; Glucose 77 mg/dL (65-105); Potassium 3.5 mmol/L (3.4-5.0); Sodium 133 mmol/L (137-145)
--- NOTE | 2020-01-16 18:30 | PC.NURSE ---
Clarified discharge orders with Dr. Martinez. Patient states she is feeling better. Patient request order for Zofran for at home. Discharge order received from Dr. Martinez for 4mg of Zofran dissolvable. FHT reactive. Patient denies contractions, mild irritability noted with visual movement. Abdomen palpates soft. VSS. Patient to follow-up as scheduled.
[2020-01-16 18:41] VITALS: TEMP 36.6
--- NOTE | 2020-01-16 18:55 | PC.NURSE ---
Discharge instructions reviewed with patient. labor precautions, iron rich diet, and medication education also reviewed with patient. Patient states understanding of discharge instructions and denies questions.
--- NOTE | 2020-01-21 07:53 | PM.OBTRLD ---
OB - Triage/Final Diagnosis Evaluation Laboratory results: Laboratory Tests 01/16/20 01/16/20 01/16/20 16:41 16:41 16:47 WBC 13.2 H RBC 3.85 L Hgb 8.4 L Hct 29.0 L MCV 75.3 L MCH 21.8 L MCHC 29.0 L RDW 19.0 H Plt Count 343 MPV 12.0 H Immature Gran % (Auto) 0.7 H Neut % (Auto) 77.1 H Lymph % (Auto) 16.6 L [place] % (Auto) 4.3 Eos % (Auto) 0.9 Baso % (Auto) 0.4 Lymph # (Auto) 2.19 [place] # (Auto) 0.6 Eos # (Auto) 0.1 Baso # (Auto) 0.1 Abs Immat Gran (auto) 0.09 H Absolute Neuts (auto) 10.2 H Absolute Nucleated RBC 0.0 Nucleated RBC % 0.0 Platelet Estimate Adequate Hypochromasia 1+ Anisocytosis 1+ Sodium 133 L Potassium 3.5 Chloride 105 Carbon Dioxide 19 L BUN 5 L Creatinine 0.50 L Estim Creat Clear Calc Not Reportable Estimated GFR > 60 Glucose 77 Calcium 8.3 L Urine Color Yellow Urine Appearance Clear Urine pH 6.0 Ur Specific [place] 1.011 Urine Protein Negative Urine Glucose (UA) Negative Urine Ketones 1+ H Ur Blood (Man) Negative Urine Nitrate Negative Urine Bilirubin Negative Urine Urobilinogen Negative Ur Leukocyte Esterase 1+ H Urine RBC 0-2 Urine WBC 0-3 Ur Squamous Epith Cells Many H Urine Bacteria Trace Urine Mucus Rare Final Diagnosis (1) contractions: Code(s): O47.9 - False labor, unspecified Status: Acute
== END 2020-01-16 18:55 | disposition home or self-care (01) ==
PROVIDERS: Admitting Provider Obstetrics & Gynecology; Visit Provider Obstetrics & Gynecology
DX: O47.03 False labor before 37 completed weeks of gestation, third trimester (principal); Z3A.31 31 weeks gestation of pregnancy
CPT/HCPCS: 36415; 80048; 81001; 85025; 87077; 87086; 87088; 96372; G0378; G0379; J3105

== ENCOUNTER 2020-01-18 02:47 | Observation (INO) | payer OTHER, MEDICAID, SELFPAY ==
[2020-01-18] VITALS (11 sets, daily range): BP systolic 94–102; BP diastolic 51–73; PULSE 73–99; TEMP 36.4; BMI 23.4
--- NOTE | ~2020-01-18 | US_ITS ---
EXAMINATION: US OB limited w BPP DATE: 01/18/2020 07:41 INDICATION: Evaluate placenta and amniotic fluid index during third trimester . TECHNIQUE: Real-time pelvic ultrasound was performed. The interpreting radiologist was not present fo r the study. COMPARISON: 12/17/2019 FINDINGS: There is a single living fetus in vertex presentation. The placenta is posterior. heart rate i s 159 beats per minute (bpm). Normal amniotic fluid index of 12.4 cm (5th%-95%: 8.8-23.8 cm at 31 wee ks estimated gestational age) Biophysical profile performed by the technologist: breathing (30 sec sustained breathing in 30 minutes): 2 out of 2 movement (3 gross body movements in 30 minutes): 2 out of 2 tone (one episode of cvssdis-enuyoqfii-[id number] limb movement): 2 out of 2 Amniotic fluid pocket (2 cm): 2 out of 2 Total score: 8 out of 8 IMPRESSION: 1. Single living fetus in vertex presentation with heart rate of 159 bpm. 2. Biophysical profile 8 out of 8. 3. Normal amniotic fluid index of 12.4 cm. Reviewed, dictated and finalized at location A.
[2020-01-18] MEDS: ONDANSETRON INJ 4 MG/2 ML VIAL IV PUSH (03:39)
[2020-01-18] MEDS: LACTATED RINGERS 1,000 ML 999 ML IV CONT (03:39)
[2020-01-18] MEDS: NIFEdipine 10 MG CAPSULE PO (06:52)
--- NOTE | 2020-01-18 08:26 | PM.IMHP ---
H&P: HPI History of Present Illness Chief complaint: cramping Narrative: Gabriela Stock is a 29 year old female multiparous at 32 weeks gestation who presented for lower abdominal/pelvic pain. She says it is a cramping pain that is intermittent. It is at the midline. Does not radiate. It lasts minutes. She rates at a 7/10. Nothing is palliative and nothing is provocative. She denies any loss of fluid, vaginal bleeding, true contractions. She denies any nausea, vomiting, fever, chills. She denies any cough. She denies any chest pain or shortness of breath. Review of Systems Constitutional: Constitutional: Reports no additional constitutional complaints, Denies fatigue, Denies headache(s), Denies lethargy and Denies weakness Eyes: Eyes: Reports no additional eye complaints, Denies blurry vision and Denies photophobia ENT: Reports as per HPI, Denies headache(s) and Denies neck pain Cardiovascular: Cardiovascular: Denies chest pain, Denies diaphoresis, Denies leg edema, Denies palpitations and Denies dyspnea Respiratory: Respiratory: Denies hemoptysis, Denies dyspnea and Denies wheezing Gastrointestinal: Gastrointestinal: Denies abdominal pain, Denies melena, Denies bloating, Denies hematochezia, Denies nausea and Denies vomiting Genitourinary: Genitourinary: Reports no additional female genitourinary complaints Musculoskeletal: Musculoskeletal: Denies joint swelling, Denies neck pain, Denies numbness and Denies stiffness Neurologic: Denies Abnormal speech present, Denies confusion, Denies headache(s), Denies numbness and Denies weakness Psychiatric: Psychiatric: Denies anxiety, Denies confusion, Denies depression, Denies homicidal ideation and Denies suicidal ideation Endocrine: Endocrine: Denies fatigue and Denies palpitations Allergic/Immunologic: Allergic/Immunologic: Denies wheezing PMF Past Medical History Medical History (Updated 01/18/20 @ 08:28 by Rashid Vergara MD) Anemia Asthma exercise induced GERD (gastroesophageal reflux disease) Seasonal allergies Upper respiratory infection Surgical History Surgical History History of cholecystectomy Hx of tonsillectomy Social History Social History Social History: Patient is . She is a full code. She has 2 daughters and 1 son at. She does still smoke 5 cigarettes per day. No alcohol use. Smoking packs per day: 0.5 Smoking cigarettes per day: 10.0 Years smoked: 5 Smoking pack-years: 2.50 Smoking status: Current every day smoker Tobacco type: cigarettes Second hand tobacco smoke exposure: Yes Alcohol intake: never Substance use: never Gender identity (if verbalized by the patient): Female Spiritual care concerns: No Agree to blood products: Yes Meds Home Medications and Allergies Home Medications Medication Instructions Recorded Confirmed Type sertraline [Zoloft] 50 mg PO DAILY 12/16/19 01/18/20 History ferrous sulfate [Iron (ferrous 325 mg PO BID #30 tablet 01/16/20 01/18/20 Rx sulfate)] ondansetron 4 mg PO Q6H PRN #30 tablet 01/16/20 01/18/20 Rx Allergies Allergy/AdvReac Type Severity Reaction Status Date / Time No Known Allergies Allergy Verified 12/29/19 13:50 Vital Signs Vital Signs - 24 hr 01/18/20 03:00 01/18/20 03:15 01/18/20 03:30 Pulse Rate 99 80 85 Blood Pressure 95/67 L 102/73 97/64 L 01/18/20 03:45 01/18/20 04:00 01/18/20 04:15 Pulse Rate 75 75 76 Blood Pressure 96/60 L 97/65 L 101/51 L 01/18/20 04:30 01/18/20 04:45 01/18/20 05:00 Pulse Rate 73 76 88 Blood Pressure 101/66 98/65 L 97/61 L 01/18/20 06:52 Pulse Rate 83 Blood Pressure 94/57 L Exam Const: General: healthy appearing, comfortable and no acute distress; No confusion Orientation/consciousness: No confusion Eyes: Direct Ophthalmoscopy: No photophobia Resp: Auscultation: c
== END 2020-01-18 09:25 | disposition home or self-care (01) ==
PROVIDERS: Admitting Provider Obstetrics & Gynecology; Visit Provider Obstetrics & Gynecology
DX: O47.03 False labor before 37 completed weeks of gestation, third trimester (principal); O99.013 Anemia complicating pregnancy, third trimester; D64.9 Anemia, unspecified; O99.333 Smoking (tobacco) complicating pregnancy, third trimester; F17.210 Nicotine dependence, cigarettes, uncomplicated; Z3A.32 32 weeks gestation of pregnancy
CPT/HCPCS: 76815; 76819; 96374; A9270; G0378; G0379; J2405; J7120

== ENCOUNTER 2020-01-21 00:33 | Observation (INO) | payer OTHER, MEDICAID, SELFPAY ==
[2020-01-21 00:51] VITALS: TEMP 36.8
[2020-01-21 00:53] VITALS: BP 95/65; PULSE 94
--- NOTE | 2020-01-21 01:15 | PC.NURSE ---
Patient sleeping without complaint.
--- NOTE | 2020-01-21 01:40 | PC.NURSE ---
Updated Dr. Martinez on patient arrival to OB unit with complaint of cramping this evening. Patient reports hx of contractions during current . No contractions noted via toco monitoring or palpation. FHT reactive category 1. Active movement palpated and audible. VSS. Patient currently sleeping. Order for UA with reflux, procardia 10mg now. SVE may be performed if patient requests.
[2020-01-21] MEDS: NIFEdipine 10 MG CAPSULE PO (01:55)
--- NOTE | 2020-01-21 01:55 | PC.NURSE ---
Plan of care discussed with patient. Patient educated on Procardia. Patient agrees with plan of care and denies questions. Procardia given as ordered.
[2020-01-21 02:28] LABS: Add Urine Microscopic? YES; Appearance Urine Cloudy (Clear); Bacteria Urine Trace /hpf; Bilirubin Urine Negative (Negative); Blood Urine Negative (Negative); Color Urine Straw (Yellow); Glucose Urine UA Negative (Negative); Ketones Urine Negative (Negative); Leukocyte Esterase Ur 1+ LEU/UL (Negative); Nitrate Urine Negative (Negative); Protein Urine Negative (Negative); RBC Urine 0-2 /hpf (0-2); Specific Grav Ur 1.009 (1.001-1.035); Squamous Epithelial Cell Urine Many /hpf (Few); Urobilinogen Urine Negative mg/dL (<2.0); WBC Urine 0-3 /hpf
--- NOTE | 2020-01-21 02:47 | PC.NURSE ---
Patient up to restroom. Patient states she is no longer feeling cramping and states she is able to rest comfortably.
[2020-01-21 03:03] VITALS: BP 100/59; PULSE 84
--- NOTE | 2020-01-21 03:05 | PC.NURSE ---
Discharge instructions reviewed with patient. Patient educated on procardia prescription and instructed to fish bait picker prescription that has be submitted to patients preferred pharmacy. Patient states understanding of discharge instructions. labor precautions reviewed with patient and patient states understanding. Patient instructed to follow-up in office within 1 week and maintain pelvic rest until cleared with OB. Patient states understanding.
--- NOTE | 2020-01-25 07:33 | PM.OBTRLD ---
OB - Triage/Final Diagnosis Evaluation Laboratory results: Laboratory Tests 01/21/20 01:55 Urine Color Straw Urine Appearance Cloudy H Urine pH 8.0 Ur Specific [place] 1.009 Urine Protein Negative Urine Glucose (UA) Negative Urine Ketones Negative Ur Blood (Man) Negative Urine Nitrate Negative Urine Bilirubin Negative Urine Urobilinogen Negative Leukocyte Esterase Rfl 1+ H Urine RBC 0-2 Urine WBC 0-3 Ur Squamous Epith Cells Many H Urine Bacteria Trace Final Diagnosis (1) contractions: Code(s): O47.9 - False labor, unspecified Status: Acute
== END 2020-01-21 03:10 | disposition home or self-care (01) ==
PROVIDERS: Admitting Provider Obstetrics & Gynecology; Visit Provider Obstetrics & Gynecology
DX: O47.03 False labor before 37 completed weeks of gestation, third trimester (principal); Z3A.32 32 weeks gestation of pregnancy
CPT/HCPCS: 81001; A9270; G0378; G0379

== ENCOUNTER 2020-01-25 20:07 | Observation (INO) | payer OTHER, MEDICAID, SELFPAY ==
[2020-01-25 21:10] VITALS: BMI 22.3
--- NOTE | 2020-01-25 22:40 | PC.NURSE ---
pt came in c/o DFM alll day. pt states that she has tried drinking cold liquid and laying on her side and hasn't felt baby move.
--- NOTE | 2020-01-25 22:43 | PC.NURSE ---
spoke to Dr. Vergara @2100- pt feeling baby move and feels better knowing that baby looks good on the monitor. ok to d/c home and pt to f/u with Bambi ROSS on 01-27-2020. pt to come back to L&D if further concerns or call OBGYN. ok to d/c home.
--- NOTE | 2020-02-16 21:21 | PM.OBTRLD ---
OB - Triage/Final Diagnosis Visit Information Date of evaluation: 01/25/20 Final Diagnosis (1) Pelvic pain: Code(s): R10.2 - Pelvic and perineal pain Status: Acute
--- NOTE | 2020-02-16 21:29 | PM.OBTRLD ---
OB - Triage/Final Diagnosis Visit Information Date of evaluation: 01/30/20 Final Diagnosis (1) Decreased movement: Code(s): O36.8190 - Decreased movements, unspecified trimester, not applicable or unspecified Status: Acute
== END 2020-01-25 21:31 | disposition home or self-care (01) ==
PROVIDERS: Admitting Provider Obstetrics & Gynecology; Visit Provider Obstetrics & Gynecology
DX: O36.8130 Decreased fetal movements, third trimester, not applicable or unspecified (principal); O26.893 Other specified pregnancy related conditions, third trimester; R10.2 Pelvic and perineal pain; Z3A.32 32 weeks gestation of pregnancy
CPT/HCPCS: G0378; G0379

== ENCOUNTER 2020-01-30 15:58 | Observation (INO) | payer OTHER, MEDICAID, SELFPAY ==
[2020-01-30 16:16] VITALS: BP 96/60; PULSE 79; BMI 22.8
--- NOTE | 2020-01-30 16:17 | OBADM ---
This patient, Gabriela Stock, admitted to the OB room OB Post 116 for observation. Patient/ oriented to hospital policies and general routines including ID bracelet, bed and alarms, visiting hours, pain management, procedures, bathroom and other care routines, personal items, smoking policy, room service/diet, call light, and visiting hours. Patient/ are encouraged to report perceived risks to care and to ask questions if they do not understand what they are told or what they should do.
[2020-01-30 16:52] LABS: Basophils Absolute Auto 0.1 K/mm3 (0.0-0.1); Basophils Percent Auto 0.6 % (0.2-1.2); Eosinophils Absolute Auto 0.2 K/mm3 (0-0.3); Eosinophils Percent Auto 1.6 % (0-4.4); Hematocrit 28.6 % (37.0-47.0); Hemoglobin 8.3 g/dL (12.0-15.0); Immature Granulocyte Absolute 0.12 K/mm3 (0.00-0.031); Immature Granulocyte Percent A 0.9 % (0-0.5); Lymphocytes Percent Auto 16.6 % (18.3-44.2); Mean Corpuscular Hemoglobin 21.6 pg (26-34); Mean Corpuscular Volume 74.5 fl (80-100); Mean Platelet Volume 11.4 fl (7.4-10.4); Monocytes Absolute Auto 0.7 K/mm3 (0.1-0.6); Monocytes Percent Auto 5.8 % (2.6-8.5); Neutrophils Absolute Auto 9.4 K/mm3 (1.3-6.7); Neutrophils Percent Auto 74.5 % (45.5-73.1); Nucleated Red Blood Cells Absolute Auto 0.1 K/mm3 (0.0-0.012); Nucleated Red Blood Cells Perc 0.4 % (0.0-0.2); Platelet Count Result 388 k/mm3 (150-375); Red Blood Count 3.84 M/mm3 (4.2-5.4); White Blood Count 12.7 K/mm3 (4.5-10.0)
[2020-01-30 16:56] LABS: Add Urine Microscopic? YES; Amorphous Sediment Urine Few; Appearance Urine Cloudy (Clear); Bacteria Urine Trace /hpf; Bilirubin Urine Negative (Negative); Blood Urine Negative (Negative); Color Urine Yellow (Yellow); Glucose Urine UA Negative (Negative); Ketones Urine Negative (Negative); Leukocyte Esterase Ur 2+ LEU/UL (Negative); Mucus Urine Rare /lpf; Nitrate Urine Negative (Negative); Protein Urine Negative (Negative); Specific Grav Ur 1.013 (1.001-1.035); Squamous Epithelial Cell Urine Many /hpf (Few); Urobilinogen Urine Negative mg/dL (<2.0)
[2020-01-30 16:59] LABS: Hypochromasia 1+ (NORMAL); Ovalocytes 1+ (NORMAL)
[2020-01-30] MEDS: BETAMETHASONE SOD PHOS/ACETATE 30 MG/5 ML VIAL 12 MG IM (17:16)
--- NOTE | 2020-02-26 17:48 | PM.OBTRLD ---
OB - Triage/Final Diagnosis Visit Information Date of evaluation: 02/04/20 Evaluation Laboratory results: Laboratory Tests 01/30/20 01/30/20 16:41 16:41 WBC 12.7 H RBC 3.84 L Hgb 8.3 L Hct 28.6 L MCV 74.5 L MCH 21.6 L MCHC 29.0 L RDW 19.0 H Plt Count 388 H MPV 11.4 H Immature Gran % (Auto) 0.9 H Neut % (Auto) 74.5 H Lymph % (Auto) 16.6 L [place] % (Auto) 5.8 Eos % (Auto) 1.6 Baso % (Auto) 0.6 Lymph # (Auto) 2.10 [place] # (Auto) 0.7 H Eos # (Auto) 0.2 Baso # (Auto) 0.1 Abs Immat Gran (auto) 0.12 H Absolute Neuts (auto) 9.4 H Absolute Nucleated RBC 0.1 H Nucleated RBC % 0.4 H Platelet Estimate Slightly increased Hypochromasia 1+ Ovalocytes 1+ Urine Color Yellow Urine Appearance Cloudy H Urine pH 6.0 Ur Specific [place] 1.013 Urine Protein Negative Urine Glucose (UA) Negative Urine Ketones Negative Ur Blood (Man) Negative Urine Nitrate Negative Urine Bilirubin Negative Urine Urobilinogen Negative Leukocyte Esterase Rfl 2+ H Urine RBC 3-5 H Urine WBC 4-6 H Ur Squamous Epith Cells Many H Amorphous Sediment Few H Urine Bacteria Trace Hyaline Casts 1-2 Urine Mucus Rare Final Diagnosis (1) False labor: Code(s): O47.9 - False labor, unspecified Status: Acute
== END 2020-01-30 17:33 | disposition home or self-care (01) ==
LOC: ANHOBPP 16:03
PROVIDERS: Admitting Provider Obstetrics & Gynecology; Visit Provider Obstetrics & Gynecology
DX: O47.03 False labor before 37 completed weeks of gestation, third trimester (principal); Z3A.33 33 weeks gestation of pregnancy
CPT/HCPCS: 36415; 81001; 85025; 87086; 87088; 96372; G0378; G0379; J0702

== ENCOUNTER 2020-01-31 16:55 | Outpatient (CLI) | payer OTHER, MEDICAID, SELFPAY ==
[2020-01-31] MEDS: BETAMETHASONE SOD PHOS/ACETATE 30 MG/5 ML VIAL 12 MG IM (17:16)
== END 2020-01-31 16:56 | disposition home or self-care (01) ==
LOC: ANHOBOP 17:10
PROVIDERS: Visit Provider Obstetrics & Gynecology
DX: O36.0930 Maternal care for other rhesus isoimmunization, third trimester, not applicable or unspecified (principal); Z3A.00 Weeks of gestation of pregnancy not specified
CPT/HCPCS: 96372; J0702

== ENCOUNTER 2020-02-04 00:25 | Observation (INO) | payer OTHER, MEDICAID, SELFPAY ==
[2020-02-04 00:40] VITALS: BMI 22.8
[2020-02-04 00:42] VITALS: BP 106/63; PULSE 84
--- NOTE | 2020-02-04 01:26 | PC.NURSE ---
Updated Dr. Martinez on maternal assessment, FHT and uterine activity. Orders for discharge received.
[2020-02-04 01:33] VITALS: TEMP 36.7
--- NOTE | 2020-02-04 01:39 | PC.NURSE ---
Discharge instructions reviewed with patient. Patient educated on labor precautions. Patient states understanding of discharge instructions and denies questions at present time.
--- NOTE | 2020-02-12 10:23 | PM.OBTRLD ---
OB - Triage/Final Diagnosis Final Diagnosis (1) contractions: Code(s): O47.9 - False labor, unspecified Status: Acute
== END 2020-02-04 01:40 | disposition home or self-care (01) ==
PROVIDERS: Admitting Provider Obstetrics & Gynecology; Visit Provider Obstetrics & Gynecology
DX: O47.03 False labor before 37 completed weeks of gestation, third trimester (principal); Z3A.34 34 weeks gestation of pregnancy
CPT/HCPCS: G0378; G0379

== ENCOUNTER 2020-02-10 23:29 | Inpatient (IN) | payer OTHER, MEDICAID, SELFPAY ==
[2020-02-10 23:43] VITALS: BP 105/72; PULSE 86; TEMP 37.3
--- NOTE | 2020-02-10 23:51 | LDADM ---
This patient, Gabriela Stock, was admitted to Labor/Delivery/Recovery 105 on 02/10/20 at 23:51. Plans for labor, pain management and were discussed with patient. Patient/family oriented to hospital policies and general routines including ID bracelet, bed and alarms, visiting hours, pain management, procedures, bathroom and other care routines, personal items, smoking policy, room service/diet and guest tray routines, security routines, and visiting hours. Patient/Family are encouraged to report perceived risks to care and to ask questions if they do not understand what they are told or what they should do. See [facility] for further documentation.
[2020-02-11] VITALS (115 sets, daily range): BP systolic 77–113; BP diastolic 40–74; PULSE 76–202; RESP 13–18; TEMP 36.9–37.4; O2SAT 93–100; BMI 22.8
[2020-02-11] MEDS: AMPICILLIN 2 GM/NS 100 ML 2 GM/100 ML BAG IVPB (00:15)
[2020-02-11] MEDS: LACTATED RINGERS 1,000 ML 125 ML IV CONT ×3 (00:15→08:45)
[2020-02-11 00:26] LABS: Basophils Absolute Auto 0.1 K/mm3 (0.0-0.1); Basophils Percent Auto 0.4 % (0.2-1.2); Eosinophils Absolute Auto 0.1 K/mm3 (0-0.3); Eosinophils Percent Auto 0.7 % (0-4.4); Hematocrit 29.6 % (37.0-47.0); Hemoglobin 8.6 g/dL (12.0-15.0); Immature Granulocyte Percent A 0.8 % (0-0.5); Lymphocytes Absolute Auto 2.39 K/mm3 (0.9-3.2); Lymphocytes Percent Auto 18.1 % (18.3-44.2); Mean Corpuscular HGB Conc 29.1 g/dl (32-36); Mean Corpuscular Hemoglobin 21.3 pg (26-34); Mean Corpuscular Volume 73.4 fl (80-100); Mean Platelet Volume 11.1 fl (7.4-10.4); Monocytes Absolute Auto 0.8 K/mm3 (0.1-0.6); Neutrophils Absolute Auto 9.8 K/mm3 (1.3-6.7); Nucleated Red Blood Cells Absolute Auto 0.1 K/mm3 (0.0-0.012); Nucleated Red Blood Cells Perc 0.6 % (0.0-0.2); Platelet Count Result 358 k/mm3 (150-375); Red Blood Count 4.03 M/mm3 (4.2-5.4); Red Cell Distribution Width 19.6 % (11.5-14.5); White Blood Count 13.2 K/mm3 (4.5-10.0)
[2020-02-11 00:53] LABS: Platelet Estimate Adequate (Adequate)
[2020-02-11 00:54] LABS: Macrocytosis 1+ (NORMAL); Microcytosis 2+ (NORMAL); Ovalocytes 1+ (NORMAL)
[2020-02-11] MEDS: AMPICILLIN 1 GM/NS 50 ML 1 GM/50 ML BAG IVPB ×2 (04:06→08:46)
[2020-02-11] MEDS: OXYTOCIN 30 UNITS/NS 500 ML 30 UNITS/500 ML BAG IV CONT (04:15)
--- NOTE | 2020-02-11 05:57 | WPDANESEPP ---
Anes - Eval Pre Procedure Procedure: Labor epidural Date/Time: 02/11/20 05:57 Surgeon: magdalene Preop Diagnosis: pain during labor Pre Op Diagnosis: leaking Patient Data Age: 29 Gender: F Height: 1.63 m Weight: 60.5 kg Last Vital Signs Temp 37.3 C 02/11/20 05:21 Pulse 93 02/11/20 05:56 BP 108/69 02/11/20 05:56 Pulse Ox 98 02/11/20 05:54 Allergies Allergy/AdvReac Type Severity Reaction Status Date / Time No Known Allergies Allergy Verified 02/11/20 02:31 Home Medications Medication Instructions Recorded Confirmed Type sertraline [Zoloft] 50 mg PO DAILY 12/16/19 02/11/20 History ferrous sulfate [Iron (ferrous 325 mg PO BID #30 tablet 01/16/20 02/11/20 Rx sulfate)] ondansetron 4 mg PO Q6H PRN #30 tablet 01/16/20 02/11/20 Rx nifedipine [Procardia] 10 mg PO Q4H PRN #30 cap 02/04/20 02/11/20 Rx Laboratory Tests 02/11/20 02/11/20 02/11/20 00:09 00:09 00:09 WBC 13.2 K/mm3 H K/mm3 (4.5-10.0) RBC 4.03 M/mm3 L M/mm3 (4.2-5.4) Hgb 8.6 g/dL L g/dL (12.0-15.0) Hct 29.6 % L % (37.0-47.0) MCV 73.4 fl L fl (80-100) MCH 21.3 pg L pg (26-34) MCHC 29.1 g/dl L g/dl (32-36) RDW 19.6 % H % (11.5-14.5) Plt Count 358 k/mm3 k/mm3 (150-375) MPV 11.1 fl H fl (7.4-10.4) Immature Gran % (Auto) 0.8 % H % (0-0.5) Neut % (Auto) 74.0 % H % (45.5-73.1) Lymph % (Auto) 18.1 % L % (18.3-44.2) [place] % (Auto) 6.0 % % (2.6-8.5) Eos % (Auto) 0.7 % % (0-4.4) Baso % (Auto) 0.4 % % (0.2-1.2) Lymph # (Auto) 2.39 K/mm3 K/mm3 (0.9-3.2) [place] # (Auto) 0.8 K/mm3 H K/mm3 (0.1-0.6) Eos # (Auto) 0.1 K/mm3 K/mm3 (0-0.3) Baso # (Auto) 0.1 K/mm3 K/mm3 (0.0-0.1) Abs Immat Gran (auto) 0.10 K/mm3 H K/mm3 (0.00-0.031) Absolute Neuts (auto) 9.8 K/mm3 H K/mm3 (1.3-6.7) Absolute Nucleated RBC 0.1 K/mm3 H K/mm3 (0.0-0.012) Nucleated RBC % 0.6 % H % (0.0-0.2) Platelet Estimate Adequate (Adequate) Microcytosis 2+ (NORMAL) Macrocytosis 1+ (NORMAL) Ovalocytes 1+ (NORMAL) RPR Pending Blood Type O Positive Antibody Screen Negative Patient hx anesthesia problems: none Family hx anesthesia problems: none PMFSH Past Medical History Medical History (Updated 01/21/20 @ 07:53 by Adrianna Martinez MD) Anemia Asthma exercise induced GERD (gastroesophageal reflux disease) Seasonal allergies Upper respiratory infection Surgical History Surgical History History of cholecystectomy Hx of tonsillectomy Family History Family History (Updated 02/11/20 @ 00:19 by Gareth Jay RN) Father Heart disease Mother COPD (chronic obstructive pulmonary disease) Asthma Sibling Hypothyroidism Autism Social History Social History Social History: Patient is . She is a full code. She has 2 daughters and 1 son at. She does still smoke 5 cigarettes per day. No alcohol use. Smoking packs per day: 0.5 Smoking cigarettes per day: 10.0 Years smoked: 5 Smoking pack-years: 2.50 Smoking status: Former smoker Tobacco type: cigarettes Second hand tobacco smoke exposure: Yes Alcohol intake: never Substance use: never Gender identity (if verbalized by the patient): Female Spiritual care concerns: No Agree to blood products: Yes Exam Day of Procedure 02/11/20 05:57
--- NOTE | 2020-02-11 07:15 | WPDOBADMIT ---
Obstetrics - Admit Note Admission Note: record reviewed. No pertinent additions to the history and/or any subsequent changes in the physical findings that are not consistent with the expected course of the were found. Pt arrived to LD with PROM and labor, SVE 4.5 per RN, antibiotics for GA, anticipate vaginal delivery Additions to the history and/or subsequent changes in the physical findings follow. None.
[2020-02-11 08:05] LABS: Amphetamine Screen Urine Negative (Negative); Barbiturate Screen Urine Negative (Negative); Benzodiazepines Screen Urine Negative (Negative); Cannabinoid Screen Urine Negative (Negative); Cocaine Screen Urine Negative (Negative); Methadone Screen Urine Negative (Negative); Opiate Screen Urine Negative (Negative); Phencyclidine Screen Urine Negative (Negative)
[2020-02-11 09:40] LABS: Rapid Plasma Reagin Non-Reactive (NonReactive)
--- NOTE | 2020-02-11 12:14 | P.PCNOB_ITS ---
OB - Delivery Note Procedure Delivery date: 02/11/20 Procedure: vaginal delivery events: Labor < 37 Weeks Intrapartal events: None Delivery monitor: external FHT and external uterine Route of delivery: Laceration description: None Estimated blood loss (mL): 110 Anesthesia type: Epidural Disposition: other () [place] Baby Date of : 02/11/20 Time of : 12:06 Weeks of gestation at delivery: 35 gender: Male presentation: vertex position: Right Occiput Anterior Placenta delivery description: Spontaneous cord vessel description: 3 Vessels, Nuchal Cord, Loose, Reduced and Clamped/Cut score one minute: 9 score five minutes: 9 Narrative: mother and baby skin to skin in stable condition
[2020-02-11] MEDS: OXYTOCIN 30 UNITS/NS 500 ML 30 UNITS/500 ML BAG 125 UNITS IV CONT (12:39)
--- NOTE | 2020-02-11 14:45 | PC.NURSE ---
Patient transferred to post room #1441 via wheelchair. Oriented to unit, room, information board, rooming in, admission packet and security measures. Patient verbalizes understanding.
--- NOTE | 2020-02-11 15:45 | PC.NURSE ---
Consult with pt., mother reports eagerly fed for first two feedings. Mother reports 3 year old without issues. Discussed an early and need to wake each feeding and have a deep latch for effective nursing. Reviewed feeding cues, frequencies, duration of feedings, feeding elimination flow sheet, and signs of adequate intake. Requested mother to call out for RN/LC assistance next feeding. Instructed feeding should be initiated three hours from start of last feeding or if feeding cues are noted before. Mother voiced understanding of information shared.
[2020-02-11] MEDS: DOCUSATE SODIUM 100 MG CAPSULE PO (17:23)
[2020-02-11] MEDS: POLYSACCHARIDE IRON COMPLEX 150 MG CAPSULE PO (17:23)
[2020-02-12 06:08] LABS: Hemoglobin 8.5 g/dL (12.0-15.0)
[2020-02-12 08:00] VITALS: BP 90/62; PULSE 71; RESP 17; TEMP 36.6; O2SAT 99
[2020-02-12] MEDS: MULTIVIT/MIN/PREN/FOL AC/IRON TABLET 1 TAB PO (08:33)
[2020-02-12] MEDS: SERTRALINE HCL 50 MG TABLET PO (08:33)
[2020-02-12] MEDS: IBUPROFEN 600 MG TABLET PO ×2 (08:33→15:40)
[2020-02-12] MEDS: POLYSACCHARIDE IRON COMPLEX 150 MG CAPSULE PO ×2 (08:33→15:41)
--- NOTE | 2020-02-12 09:43 | PM.OBPNVD ---
OB - PN: Subj Subjective Date/time seen: 02/12/20 09:43 Patient comments: no complaints, pain well controlled, incisional pain, tolerating diet, flatus present and other (Lochia similar to menses) baby status: doing well OB - PN: Obj Data Labs CBC & Chem 7: 02/12/20 05:07 Labs: Laboratory Results - last 24 hr 02/12/20 05:07 Hgb 8.5 L Hct 30.0 L OB - PN A/P Plan day: 1 (s/p C section, doing well) Plan: routine care Time Spent With Patient Time: Total time spent is greater than 50% in coordination of care (as documented) at patient's floor/unit and/or counseling patient: Exam Const: General: no acute distress Resp: Auscultation: clear to auscultation bilaterally Cardio: Rate: regular rate Rhythm: regular rhythm GI: Inspection: non-distended, incision (Intact without erythema, drainage, or induration) and other (Fundus firm and nontender at umbilicus) GI Palp: Yes abdominal tenderness (appropriate ) and Yes Soft to palpation Extrem: General: no edema
--- NOTE | 2020-02-12 10:19 | P.PNOB_ITS ---
OB - PN: Subj Subjective Date/time seen: 02/12/20 10:19 Patient comments: no complaints, pain well controlled and other (Lochia similar to menses) [place] baby status: doing well OB - PN: Obj Data Labs CBC & Chem 7: 02/12/20 05:07 Labs: Laboratory Results - last 24 hr 02/12/20 05:07 Hgb 8.5 L Hct 30.0 L OB - PN A/P Plan day: 1 (s/p vaginal delivery, doing well) Plan: routine care Time Spent With Patient Time: Total time spent is greater than 50% in coordination of care (as do cumented) at patient's floor/unit and/or counseling patient: Exam Const: General: no acute distress GI: Inspection: other (Fundus firm and nontender at umbilicus) GI Palp: Yes Soft to palpation and No Tenderness to palpation present (GI) Extrem: General: no edema
--- NOTE | 2020-02-12 14:38 | PCCCNOTE ---
Social Service Note: Spoke to pt. today via phone due to COVID-19 restrictions. Pt. reports she lives at home with her Mk and her children. Pt. reports her supports include Mk and her sister, who is in pt.'s room this afternoon. Pt. has three children. Pt. reports she has all necessary supplies including a crib, car seat, clothing, and formula. Pt. denies any case management needs. Pt. has had DCFS history in the past including DCFS taking custody of children from both pt. and FOB Mk. Call to DCFS hotline to inform of . Spoke with Dionicio Manzano at hotline, intake # [phone]. At this time pt. has no current DCFS involvement, no report will be taken at this time.
[2020-02-12] MEDS: DOCUSATE SODIUM 100 MG CAPSULE PO (15:40)
[2020-02-12 22:00] VITALS: BP 91/56; PULSE 61; RESP 13; TEMP 37; O2SAT 99
--- NOTE | 2020-02-13 08:37 | PM.OBPNVD ---
OB - PN: Subj Subjective Date/time seen: 02/13/20 08:37 Patient comments: no complaints, pain well controlled and other (Lochia similar to menses) [place] baby status: doing well OB - PN: Obj Data Labs CBC & Chem 7: 02/12/20 05:07 OB - PN A/P Plan day: 2 (s/p vaginal delivery, doing well) Plan: routine care, discharge home and other (Follow up in office in 4 weeks) Time Spent With Patient Time: Total time spent is greater than 50% in coordination of care (as documented) at patient's floor/unit and/or counseling patient: Exam Const: General: no acute distress GI: Inspection: other (Fundus firm and nontender below umbilicus) GI Palp: Yes Soft to palpation and No Tenderness to palpation present (GI) Extrem: General: no edema
[2020-02-13 10:20] VITALS: BP 96/63; PULSE 77; RESP 18; TEMP 37.6; O2SAT 98
[2020-02-13] MEDS: IBUPROFEN 600 MG TABLET PO (10:26)
[2020-02-13] MEDS: MULTIVIT/MIN/PREN/FOL AC/IRON TABLET 1 TAB PO (10:27)
[2020-02-13] MEDS: DOCUSATE SODIUM 100 MG CAPSULE PO (10:27)
[2020-02-13] MEDS: POLYSACCHARIDE IRON COMPLEX 150 MG CAPSULE PO (10:27)
[2020-02-13] MEDS: SERTRALINE HCL 50 MG TABLET PO (10:27)
--- NOTE | 2020-02-13 12:00 | PCCCNOTE ---
Addendum entered by SALVATORE Holliday 02/13/20 12:06: DCFS report is linked to Intake ID [id number] and [id number]. Original Note: Social Service Note: Received call from nursing that DCFS worker Willian Armando (Bill) (ajith) [phone] came last night to speak to pt. regarding DCFS history. Per nursing DCFS will be taking custody of amanda Stock at discharge. CC contacted [employer] this morning who states that pt. currently does not have custody of her children and that KHARI Terrazas is in shelter. Per [facility] pt. is not able to care for amanda Stock and DCFS will take custody today upon baby's discharge. DCFS informed Gabriela this morning, KORINA Coello will be here at 10:30am.
--- NOTE | 2020-02-13 15:24 | PC.NURSE ---
1030 Mother's discharge papers reviewed with her and pt signed them.
--- NOTE | 2020-02-13 15:25 | PC.NURSE ---
1246 Pt's ride here to take her home and pt discharged home at this time; baby was discharged to [facility] custody at 1155. Mother asked to say good bye to baby;; baby was brought in to see her by Plant [employer] and RN at 1150; baby was in car seat. Mother sitting up in position; very emotional, crying. She made no gesture toward infant to touch or be close to him or talk to him; pt's sister with her.
[2020-02-16 10:56] VITALS: BP 100/69; PULSE 86; RESP 16; TEMP 37; O2SAT 100
--- NOTE | 2020-02-18 07:48 | PM.OBDSVD ---
DS: Diagnosis Admitting Diagnosis Admitting Diagnosis: Encounter for supervision of normal , unspecified, third trimester OB - DS: Summary OB Procedures : None OB Procedures Intrapartum: Spontaneous Vag Delivery OB Procedures: : None Time Spent with Patient Time attestation: Total time spent providing and/or coordinating discharge services: DS: Data Data Completed and Pending Completed studies during hospitalization: Pending at discharge 02/11/20 12:10 Surgical [PTH] Routine Discharge Plan Discharge Attending physician on discharge: Rashid Vergara Consulting providers: Gabriela Mejia Discharging Clinician: Adrianna Martinez Patient Disposition: Home, Self-Care Activity: may shower and pelvic rest Diet: regular Discharge Instructions: Education: Mom and Baby Guide Given to: Mother Follow-Up: Call your delivering provider's office for an appointment to be seen in: 4 Weeks Mom and baby should come to the [facility] for the follow-up appointment. Appointment Date/Time: February 16, 2020 at 11:00 am What to expect at your follow-up visit: Blood Pressure Check Physical Assessment Call [phone] if you are unable to keep your appointment time. BREAST CARE: 1. Wear a snug supportive bra. 2. For engorgement discomfort: Breast Feeding: A. Apply warm moist washcloths B. Express milk as needed to relieve engorgement C. Wear loose clothing Bottle Feeding: A. May apply ice packs 3. For sore nipples: A. Identify correct latch-on B. Apply warm moist washcloths before and after nursing C. Air dry nipples after nursing D. May apply Lansinoh cream to nipples EPISIOTOMY/PERINEAL CARE: 1. Until bleeding stops, use your brenda bottle after urinating 2. Change your pad frequently throughout the day 3. You may take sitz baths several times a day (fill your bathtub with warm water and soak for 20 minutes.) Do NOT bathe in the water 4. No tub baths until seen by your physician - You may shower ACTIVITY: 1. Rest as much as possible. 2. Do not exercise or lift anything heavier than your baby (such as laundry or other children.) 3. Avoid stairs or driving as much as possible. 4. Do not put anything into the vagina. No douching, tampons, or sexual activity until seen by physician. NOTIFY PHYSICIAN IF YOU HAVE ANY QUESTIONS OR IF ANY OF THE FOLLOWING SYMPTOMS OCCUR: 1. If your perineum becomes red, swollen, or more painful than what you have experienced in the hospital. 2. If your vaginal bleeding becomes foul smelling. 3. If your vaginal bleeding becomes more heavy than a period or if your bleeding changes from pink to bright red. However, you may pass an occasional walnut-sized clot once or twice for the first week . 4. If you experience a sharp, shooting pain in you calves. 5. If you discover a hard, reddened area on your breast or if you experience flu-like symptoms. 6. Temperature of 100.4 or higher DIET: 1. Eat regular, well-balanced meals. 2. Drink plenty of fluids daily. If , drink to thirst. Patient Instructions: Antibiotic Form Stand Alone Forms: General Discharge Information Follow-up/Referrals: Gabriela Mejia CNM [Certified Nurse [employer]] - 4 Weeks Discharge Medications: New ibuprofen 600 mg Tablet 600 mg PO Q6H PRN (Reason: Cramping) Qty: 60 RF: 0 Continued sertraline [Zoloft] 50 mg Tablet 50 mg PO DAILY RF: 0 ondansetron 4 mg Tablet,Disintegrating 4 mg PO Q6H PRN (Reason: Nausea And Vomiting) Qty: 30 RF: 0 ferrous sulfate [Iron (ferrous sulfate)] 325 mg (65 mg iron) Tablet 325 mg PO BID Qty: 30 RF: 0 Discontinued nifedipine [Procardia] 10 mg Capsule 10 mg PO Q4H PRN (Reason: contractions) Qty: 30 RF: 0 Date of admission: 02/10/20 23:51 Primary Care Provider: UNKNOWN,DOCTOR
== END 2020-02-13 12:46 | disposition home or self-care (01) | DRG 807 ==
LOC: ANHLDR 23:51 → ANHOB2 02-13 08:39 → ANHLDR 02-16 08:20 → ANHOB2 02-16 08:20
PROVIDERS: Advanced Practice Midwife; Admitting Provider Obstetrics & Gynecology; Visit Provider Obstetrics & Gynecology
DX: O60.14X0 Preterm labor third trimester with preterm delivery third trimester, not applicable or unspecified (principal); Z37.0 Single live birth; O42.913 Preterm premature rupture of membranes, unspecified as to length of time between rupture and onset of labor, third trimester; Z3A.35 35 weeks gestation of pregnancy; Z87.891 Personal history of nicotine dependence; D64.9 Anemia, unspecified; O99.02 Anemia complicating childbirth
CPT/HCPCS: 36415; 80307; 84112; 85014; 85018; 85025; 86592; 86850; 86900; 86901; 88307; A9270; J0290; J2590; J2795; J7120